=== PATIENT | female | born 1995 | race Caucasian/White ===

== ENCOUNTER → 2017-04-22 | Outpatient (CLI) | payer OTHER ==
[~2017-04-22] MED LIST: MISC-696
== END | disposition home or self-care (01) ==
LOC: C.LABSPEC 13:29
PROVIDERS: ATTEND Obstetrics & Gynecology
DX: Z34.00 Encounter for supervision of normal first pregnancy, unspecified trimester (principal)

== ENCOUNTER 2017-05-20 14:46 | Outpatient (CLI) | payer OTHER ==
[~2017-05-20] VITALS: Ht 167.6 cm; Wt 100.9 kg
--- NOTE | 2017-05-20 16:28 | DIAGNOSTIC IMAGING REPORT ---
LIMITED (US) CLINICAL HISTORY: variable heart rate on nst COMPARISON STUDY: None. FINDINGS: The fetus demonstrates a cephalic presentation. heart rate is 143 bpm. Amniotic fluid index is 14.5 cm. Femur length is 7.2 cm consistent with a 36 week and 6 day gestation. Biparietal diameter is 9.7 cm consistent with a 39 week and 4 day gestation. A survey was not performed for this examination. Anterior and lateral placenta. No evidence for subchorionic hematoma. IMPRESSION: 1. heart rate is 143 beats per minutes. The fetus is in a cephalic presentation. 2. No evidence for subchorionic hematoma. 3. Amniotic fluid index is 14.5 cm. Electronically signed by: Dustin Rinaldi M.D. 05/20/2017 4:27 PM Dictated Date/Time: 05/20/2017 4:24 PM
[2017-05-20 16:42] VITALS: Ht 167.6 cm; Wt 100.9 kg
== END 2017-05-20 17:04 | disposition home or self-care (01) ==
LOC: C.OPB 14:46 → C.LD 14:46 → C.OPB 17:04
PROVIDERS: ATTEND Obstetrics & Gynecology
DX: O26.893 Other specified pregnancy related conditions, third trimester (principal); Z3A.40 40 weeks gestation of pregnancy

== ENCOUNTER 2017-05-22 07:33 | Inpatient (IN) | payer OTHER ==
[~2017-05-22] VITALS: Ht 167.6 cm; Wt 100.9 kg
[2017-05-22 07:35] VITALS: BMI 35.9
[2017-05-22] MEDS ORDERED: LACTATED RINGER'S 1000ML 1,000 ML IV PRN (08:18)
[2017-05-22] MEDS ORDERED: LACTATED RINGER'S 1000ML 1,000 ML IV SCH (08:18)
[2017-05-22] MEDS ORDERED: PENICILLIN G POTASSIUM IV 6 MU in DEXTROSE 5% 250ML 250 ML IV ONE (09:00)
[2017-05-22 09:25] LABS: HEMATOCRIT 38.2 % (37-47); MEAN CELL VOLUME 93.2 fL (80-100); MEAN CORPUSCULAR HEMOGLOBIN 30.2 pg (25-34); MEAN CORPUSCULAR HGB CONC 32.5 g/dl (32-36); MEAN PLATELET VOLUME 12.2 fL (7.4-10.4); PLATELET COUNT 118 K/uL (130-400); WHITE BLOOD COUNT 12.29 K/uL (4.8-10.8)
[2017-05-22 09:26] LABS: PLT ESTIMATE NORMAL
[2017-05-22] MEDS ORDERED: EpHEDrine SULFATE INJ 50 MG/ML AMP ONE (09:26)
[2017-05-22] MEDS ORDERED: BUPIVACAINE 0.25% 30 ML VIAL ONE (09:26)
[2017-05-22] MEDS ORDERED: FENTANYL 2MCG/ML ROPIV 1.25MG/ML 100ML BAG EPI ONE (09:27)
[2017-05-22] MEDS ORDERED: FENTANYL CITRATE INJ 50 MCG/1 ML 2 ML VIAL ONE (09:27)
[2017-05-22] MEDS ORDERED: DiphenhydrAMINE HCL 50 MG/ML VIAL IV PRN (11:30)
[2017-05-22] MEDS ORDERED: LACTATED RINGER'S 1000ML 500 ML IV PRN (11:30)
[2017-05-22] MEDS ORDERED: NALOXONE HCL INJ 1 MG in SODIUM CHLORIDE 0.9% 1000ML 1,000 ML IV PRN (11:30)
[2017-05-22] MEDS ORDERED: ONDANSETRON INJ 2 MG/ML 2 ML VIAL IV PRN (11:30)
[2017-05-22] MEDS ORDERED: EpHEDrine SULFATE INJ 50 MG/ML AMP IV PRN (11:30)
[2017-05-22] MEDS ORDERED: FENTANYL 2MCG/ML ROPIV 1.25MG/ML 100ML BAG EPI PRN (11:30)
[2017-05-22] MEDS ORDERED: NALOXONE HCL INJ 0.4 MG/1 ML VIAL/CARP IV PRN (11:30)
[2017-05-22] MEDS ORDERED: NALBUPHINE HCL INJ 10 MG/ML AMP IV PRN (11:30)
[2017-05-22] MEDS ORDERED: PENICILLIN G POTASSIUM IV 3 MU in DEXTROSE 5% 100ML 100 ML IV PRN (12:00)
[2017-05-22] MEDS ORDERED: OXYTOCIN 30 UNITS/500ML NSS IV ONE (13:37)
[2017-05-22] MEDS ORDERED: OXYTOCIN 30 UNITS/500ML NSS IV PRN (15:00)
[2017-05-22] MEDS ORDERED: ACETAMINOPHEN 325 MG TAB PO PRN (15:00)
[2017-05-22] MEDS ORDERED: SUPERCREAM 0.870 % 15GM JAR EXT PRN (15:00)
[2017-05-22] MEDS ORDERED: BENZOCAINE 20% AER SPR 82.5 GM CAN EXT PRN (15:00)
[2017-05-22] MEDS ORDERED: ACETAMINOPHEN/CODEINE 300/30MG TAB PO PRN ×2 (15:00)
[2017-05-22] MEDS ORDERED: LANOLIN OINT EXT PRN ×2 (15:00)
[2017-05-22 15:46] VITALS: Ht 167.6 cm; Wt 100.9 kg
[2017-05-22] MEDS: IBUPROFEN 600 MG TAB PO PRN (16:23)
--- NOTE | 2017-05-22 17:02 | Anesthesia Procedure Note ---
Anesthesia Epidural Removal Nt Date & Time May 22, 2017 at 17:01 Vital Signs Pain Intensity: 2.0 Notes Mental Status: alert / awake / arousable, participated in evaluation Nausea / Vomiting: adequately controlled Pain: adequately controlled Airway Patency, RR, SpO2: stable & adequate BP & HR: stable & adequate Hydration State: stable & adequate Neuraxial Anesthesia: was administered, sensory block is resolved Anesthetic Complications: no major complications apparent, pt satisfied with anesthetic care Epidural: removed without complications, with tip intact Notes: catheter removed easily with tip intact. Site clean, dry and intact with bandaid applied.
[2017-05-22] MEDS: DOCUSATE SODIUM 100 MG CAP PO SCH (20:41)
[2017-05-22 23:45] VITALS: BP 117/76; PULSE 88; TEMP 36.7
[2017-05-23] MEDS: IBUPROFEN 600 MG TAB PO PRN ×3 (02:42→19:05)
[2017-05-23 04:35] VITALS: BP 114/73; PULSE 93; TEMP 36.8
--- NOTE | 2017-05-23 06:11 | Discharge Instructions ---
Discharge Instructions Date of Service May 23, 2017. Admission Reason for Admission: Check Labor Discharge Discharge Diagnosis / Problem: after delivery Discharge Goals Goal(s): Routine recovery after delivery Medications Continue Dispensed Medications: supercream, dermaplast, lansinoh Activity Recommendations Activity Limitations: per Instructions/Follow-up section . Instructions / Follow-Up Instructions / Follow-Up ACTIVITY RECOMMENDATIONS: * Gradual return to full activity over the next 2-3 weeks. * No lifting - nothing heavier than baby over the next 2-3 weeks. * Do not engage in vigorous exercise, sexual activity or sports until cleared by your physician. * Do not drive or operate any motorized equipment until cleared by your physician. * You may shower/bathe daily. MEDICATIONS: For discomfort or pain, you may use Acetaminophen (Tylenol), Ibuprofen (Advil), or Naproxen (Aleve) following the package directions. For constipation you may use Colace following the package directions. BREAST CARE: If you are not breast feeding: * Wear a supportive bra 24 hours a day for one to two weeks. * Avoid stimulating your breasts and nipples as much as possible during the first few weeks after delivery. * When taking a shower, have the warm water hit your back, not breasts. * When your breasts feel full, apply ice packs. Usually three to four times a day helps ease the discomfort. * Take a mild pain medication (Tylenol / Motrin) when you are uncomfortable. If breast feeding: * Use breast milk to lubricate nipples. Lansinoh cream may be used for sore nipples. You do not need to remove cream prior to breast feeding. If using a different brand of cream, check the label for directions regarding removal of cream prior to nursing. * Wear a supportive bra. * If having problems with breasts or breast feeding, call a datastage consultant or your health care provider. EPISIOTOMY CARE: After delivery, if you have an episiotomy (stitches), the following steps will ease discomfort and aid healing. * For the first 24 hours after delivery, place ice packs next to your episiotomy to help reduce swelling. * After the first 24 hour-period, sitz baths, either portable or in the tub, are suggested. A shower with a shower arm sprayed over the episiotomy may be comforting. * Kiersten care should be done after each voiding and bowel movement. Squirt warm water from a plastic bottle over the perineum (region of the body between the anus and urinary opening) and pat dry. * Use Dermoplast to ease discomfort. Shake container. [place] directly over the episiotomy. Place a Tucks on a clean sanitary pad next to your episiotomy. SPECIAL CARE INSTRUCTIONS: When you are discharged from the hospital, it is important for you to follow the instructions listed below: * During the first week at home, you should be able to care for yourself and your baby. In addition, the usual light household activities are encouraged. * Limit your activities to the way you feel. Do not try to clean the house or move furniture. Be sensible. * If you actively engage in sports and have done so up until the time of your delivery, you may resume these activities as soon as you feel able. This may take up to one month or even longer. Use good judgment. * Continue to take your vitamins for at least six weeks after the of your baby. * Your diet need not be limited unless you were on a special diet before your delivery. Breast-feeding mothers need around 2500 calories per day and at least 64-80 ounces of fluid per day (8 to 10 glasses). * You should eat foods from the four major food groups. Crash diets or fad diets are to be avoided. Eating lean meats, fresh fruits and vegetables, low-fat dairy products, high fiber foods and a regular exercise program, will help you get back to your pre- weight without putting your health at risk. * Constipation is sometimes a problem after delivery. Take a mild laxative as needed. If breast feeding, Milk of Magnesia is acceptable to use. You may use a suppository or Fleets enema if no episiotomy. * A daily shower or tub bath is suggested. Be sure to thoroughly and gently dry the perineum. * A bloody vaginal discharge will usually continue until around four weeks post . A small amount of bleeding may continue for as long as six weeks. Vaginal discharge changes from the bright red bleeding after delivery to pink then brownish and finally yellowish-pink before becoming white and disappearing. * Bleeding may increase with activity. Your first period may come in 4-8 weeks. If you are breast feeding, your period may be delayed even longer. * [place] (sex) can begin whenever both you and your partner feel comfortable and do not have any form of genital infection. It is recommended that you wait at least six weeks for internal and external healing to occur. If you have questions, please talk to your health care practitioner. A condom should be used to prevent infection and . * Foreplay, gentle intercourse and lubrication is very important the first several times to prevent pain. A water-based lubricant such as K-Y jelly or Astroglide may be used. * If you have RH negative blood and your baby is RH positive, you will receive RHOGAM by injection prior to discharge. The nurse will give you a card to keep with you that has the date and place that you received RHOGAM after delivery. * During your care, you had a Rubella screen done to check for the presence of rubella antibodies in your blood. If your test was negative, you will receive a Rubella vaccine prior to discharge. This vaccine may cause a fever, soreness at the injection site and flu-like symptoms. If these symptoms persist, notify your health care practitioner. is not advised for one month after a Rubella vaccine. * Verbalizes understanding of car seat law as reviewed with patient nursing. * Car Seat hand-out given and reviewed with patient by nursing. * Shaken baby information reviewed with patient by nursing. Call you doctor if: * Heavy bleeding (saturating several pads an hour) or passing clots the size of your fist. * A fever >101 degrees F (38.3 degrees C) on two occasions four hours apart and /or chills. * Unusual pain in the pelvic or vaginal areas. * "Baby Blues" lasting longer than two weeks. If you have any questions or concerns, call your health care practitioner at . FOLLOW UP VISIT: * Please call the office at to schedule a 6 week examination. It is important you keep this appointment. It is important for you to make arrangements for either yearly or twice yearly check-ups thereafter. Current Hospital Diet Patient's current hospital diet: Regular OB Diet Discharge Diet Recommended Diet: Regular Diet Pending Studies Studies pending at discharge: no Medical Emergencies . Who to Call and When: Medical Emergencies: If at any time you feel your situation is an emergency, please call 911 immediately. . Non-Emergent Contact Non-Emergency issues call your: Special Warfare Operator . . "Provider Documentation" section prepared by Sita Riddle. . VTE Core Measure Inpt VTE Proph given/why not?: Treatment not indicated
--- NOTE | 2017-05-23 06:14 | OB/GYN Progress Note ---
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 Subjective conversation w/ patient, physical exam, chart review, lab review Ambulation: ambulating normally Voiding: no voiding problems Diet Tolerance: Regular Diet Lochia: Small Feeding Type: Breast Feeding Pain: in no sig pain Review of Systems Constitutional: No fever Respiratory: No shortness of breath Cardiac: No chest pain Abdomen: No nausea, No vomiting Female : No dysuria Objective Vital Signs Date Time Temp Pulse Resp B/P (MAP) Pulse Ox O2 Delivery O2 Flow Rate FiO2 05/23/17 04:35 36.8 93 20 114/73 (87) Room Air 05/22/17 23:45 36.7 88 20 117/76 (90) Room Air 05/22/17 23:45 Room Air 05/22/17 18:00 Room Air Physical Exam General Appearance: WELL-APPEARING Respiratory/Chest: lungs clear, normal breath sounds, no respiratory distress Cardiovascular: regular rate, rhythm Abdomen: normal bowel sounds, non tender, soft Fundus: Firm, Relation to Umbilicus (2 below U) Extremities: non-tender, normal inspection, + pedal edema (1+) Laboratory Results Last 24 Hours Test 05/22/17 08:33 05/23/17 05:18 White Blood Count 12.29 K/uL Red Blood Count 4.10 M/uL Hemoglobin 12.4 g/dL Hematocrit 38.2 % Mean Corpuscular Volume 93.2 fL Mean Corpuscular Hemoglobin 30.2 pg Mean Corpuscular Hemoglobin Concent 32.5 g/dl RDW Standard Deviation 43.5 fL RDW Coefficient of Variation 12.9 % Platelet Count 118 K/uL Mean Platelet Volume 12.2 fL Platelet Estimate NORMAL Medications Current Inpatient Medications Medications (Trade) Dose Ordered Sig/Lisa Route Start Time Stop Time Status Last Admin Dose Admin Penicillin G Potassium 3 mu/ Dextrose 106 ml @ 100 mls/hr Q4H PRN IV 05/22/17 12:00 05/24/17 11:59 05/22/17 12:55 100 MLS/HR Lactated Ringer's 1,000 ml @ 125 mls/hr Q8H IV 05/22/17 08:18 05/24/17 08:17 05/22/17 12:45 125 MLS/HR Lactated Ringer's 1,000 ml @ 999 mls/hr Q1H1M PRN IV 05/22/17 08:18 06/21/17 08:17 Fentanyl/ Ropivacaine (Fentanyl 2MCG/ Ml/Ropivacaine 1.25MG/ML) 100 ml PRN PRN EPI 05/22/17 11:30 05/23/17 11:29 Naloxone HCl (Narcan Inj) 0.1 mg UD PRN IV 05/22/17 11:30 05/23/17 11:29 Lactated Ringer's 500 ml @ 999 mls/hr Q31M PRN IV 05/22/17 11:30 05/23/17 11:29 Ephedrine Sulfate (EpHEDrine SULFATE INJ) 10 mg Q5M PRN IV 05/22/17 11:30 05/23/17 11:29 Diphenhydramine HCl (Benadryl Inj) 25 mg Q6H PRN IV 05/22/17 11:30 05/23/17 11:29 Nalbuphine HCl (Nubain Inj) 5 mg Q10M PRN IV 05/22/17 11:30 05/23/17 11:29 Naloxone HCl 1 mg/ Sodium Chloride 1,002.5 ml @ 50 mls/hr Q20H3M PRN IV 05/22/17 11:30 05/23/17 11:29 Ondansetron HCl (Zofran Inj) 4 mg Q6H PRN IV 05/22/17 11:30 05/23/17 11:29 Oxytocin (Pitocin IV) 30 units UD PRN IV 05/22/17 15:00 06/21/17 14:59 Benzocaine (Dermoplast Aero Spr) 1 appln PRN PRN EXT 05/22/17 15:00 06/21/17 14:59 05/22/17 16:22 1 APPLN Cocaine HCl (Supercream 0.870% Cr) BID PRN EXT 05/22/17 15:00 06/05/17 14:59 Lanolin (Lanolin Oint) PRN PRN EXT 05/22/17 15:00 06/21/17 14:59 Prenat Multivit/ Manager Site/Iron/Folic Ac ( Vitamin Tab) 1 tab DAILY PO 05/23/17 08:00 06/22/17 07:59 Ibuprofen (Motrin Tab) 600 mg Q4H PRN PO 05/22/17 15:00 06/21/17 14:59 05/23/17 02:42 600 MG Acetaminophen (Tylenol Tab) 650 mg Q6H PRN PO 05/22/17 15:00 06/21/17 14:59 Acetaminophen/ Codeine Phosphate (Tylenol w/ Codeine #3 Tab) 1 tab Q4H PRN PO 05/22/17 15:00 06/21/17 14:59 Acetaminophen/ Codeine Phosphate (Tylenol w/ Codeine #3 Tab) 2 tab Q4H PRN PO 05/22/17 15:00 06/21/17 14:59 Bisacodyl (Dulcolax Tab) 5 mg 20 PO 05/23/17 20:00 05/23/17 20:01 Docusate Sodium (coLACE CAP) 100 mg BID PO 05/22/17 20:00 06/21/17 19:59 05/22/17 20:41 100 MG Ferrous Sulfate (Feosol Tab) 325 mg DAILY PO 05/23/17 08:00 06/22/17 07:59 Assessment and Plan Day Number: 1 Continue Routine Care: Resident Physician Supervision Note: I was present with Dr. Riddle during the history and exam. I discussed the case with the resident and agree with the findings and plan as documented in the note. Any exceptions or clarifications are listed here: [None] Documented By: Valarie Ace A/P: This is a 21 y/o female, , s/p normal vaginal delivery. She is ambulating and clinically stable. Plan: - Vitals signs are reviewed and WNL (Tmax 36.8) - Last Hgb is 12.4 (05/22) - Blood type O+, GBS neg, Rubella Immune - Routine care - Encourage ambulation, monitor and control pain with medication as needed, continue with regular diet as tolerated and monitor lochia - Stool softeners and sitz bath recommended - Encourage breast feeding and educate about breast feeding Resident Involvement: Resident Care Provided Care Provided: OB Delivery
[2017-05-23 07:12] VITALS: BP 110/70; PULSE 82; TEMP 36.6; O2SAT 97
[2017-05-23 07:42] VITALS: BP 127/78; PULSE 99; TEMP 36.7
[2017-05-23 07:57] LABS: HEMATOCRIT 22.6 % (37-47)
[2017-05-23] MEDS: DOCUSATE SODIUM 100 MG CAP PO SCH ×2 (08:04→20:05)
[2017-05-23] MEDS: PRENATAL VITAMIN TAB PO SCH (08:05)
[2017-05-23] MEDS: FERROUS SULFATE 325 MG TAB PO SCH (08:05)
--- NOTE | 2017-05-23 08:07 | DELIVERY SUMMARY ---
DATE OF OPERATION: 05/22/2017 DELIVERY NOTE: The patient is a 21-year-old G1, P0 white female, EDC of 05/20/2017 who presented in active labor. Upon arrival, she had had more than the usual bloody show and indeed had about 300 mL of blood on the balbina. She also passed 2 clots. She was examined and found to be 3 to 4-cm dilated, contractions were every 2-3 minutes. She received epidural analgesia, which was effective. At this point, she was 6 cm, 100% effaced with bulging membranes. This was ruptured for more clot and bloody fluid. Her heart tones remained category I throughout the labor process. She progressed quickly to full dilation and pushed effectively over intact perineum for delivery of a viable male . Mouth and nasopharynx were suctioned on the perineum. There was port wine colored fluid coming out after the head was delivered. The rest of the infant delivered easily. He was placed on the mother's abdomen for further attention and stimulation. There was vigorous crying and was moving all four limbs. The cord was clamped and cut and cord blood was obtained. The placenta was then expressed intact with a 3-vessel cord. There was minimal clot noted to be on the edge of the placental cake but nothing obvious as far as an abruption. A second-degree perineal laceration was repaired with 3-0 chromic in the usual fashion. There was a steady trickle of bleeding after delivery despite the Pitocin running at 999 mL per hour. Several smaller clots were then expressed from the cervix and bleeding was then satisfactory. Estimated blood loss was 800 mL including the peripartum bleeding. Mother and infant are doing well after delivery. I attest to the content of the Intraoperative Record and any orders documented therein. Any exception s are noted below.
[2017-05-23 11:17] VITALS: BP 115/75; PULSE 86; TEMP 36.6; O2SAT 98
[2017-05-23 15:15] VITALS: BP 112/73; PULSE 83; TEMP 36.7
[2017-05-23] MEDS ORDERED: MISC-696 ×2 (16:05)
[2017-05-23] MEDS ORDERED: BISACODYL 5 MG TABEC PO SCH (20:00)
[2017-05-24] VITALS: BP 109/74; PULSE 84; TEMP 36.7
--- NOTE | 2017-05-24 06:31 | OB/GYN Progress Note ---
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 Subjective conversation w/ patient, physical exam, chart review, lab review Ambulation: ambulating normally Passing Gas: Yes Diet Tolerance: Regular Diet Lochia: Small Feeding Type: Breast Feeding Pain: mild pain Review of Systems Constitutional: No fever Respiratory: No shortness of breath Cardiac: No chest pain Abdomen: No nausea, No vomiting Female : No dysuria Objective Vital Signs Date Time Temp Pulse Resp B/P (MAP) Pulse Ox O2 Delivery O2 Flow Rate FiO2 05/24/17 00:00 Room Air 05/24/17 00:00 36.7 84 18 109/74 (86) Room Air 05/23/17 15:15 Room Air 05/23/17 15:15 36.7 83 18 112/73 (86) Room Air 05/23/17 11:17 36.6 86 20 115/75 (88) 98 Room Air 05/23/17 07:42 36.7 99 18 127/78 (94) Room Air 05/23/17 07:42 Room Air 05/23/17 07:12 36.6 82 16 110/70 (83) 97 Room Air Physical Exam General Appearance: WELL-APPEARING Respiratory/Chest: lungs clear, normal breath sounds, no respiratory distress Cardiovascular: regular rate, rhythm Abdomen: normal bowel sounds, non tender, soft Fundus: Firm, Relation to Umbilicus (3 below U) Extremities: non-tender, + pedal edema (1+) Laboratory Results Last Resulted 05/22/17 08:33 05/23/17 05:18 Medications Current Inpatient Medications Medications (Trade) Dose Ordered Sig/[facility] Route Start Time Stop Time Status Last Admin Dose Admin Penicillin G Potassium 3 mu/ Dextrose 106 ml @ 100 mls/hr Q4H PRN IV 05/22/17 12:00 05/24/17 11:59 05/22/17 12:55 100 MLS/HR Lactated Ringer's 1,000 ml @ 125 mls/hr Q8H IV 05/22/17 08:18 05/24/17 08:17 05/22/17 12:45 125 MLS/HR Lactated Ringer's 1,000 ml @ 999 mls/hr Q1H1M PRN IV 05/22/17 08:18 06/21/17 08:17 Oxytocin (Pitocin IV) 30 units UD PRN IV 05/22/17 15:00 06/21/17 14:59 Benzocaine (Dermoplast Aero Spr) 1 appln PRN PRN EXT 05/22/17 15:00 06/21/17 14:59 05/22/17 16:22 1 APPLN Cocaine HCl (Supercream 0.870% Cr) BID PRN EXT 05/22/17 15:00 06/05/17 14:59 Lanolin (Lanolin Oint) PRN PRN EXT 05/22/17 15:00 06/21/17 14:59 Prenat Multivit/ [place]/Iron/Folic Ac ( Vitamin Tab) 1 tab DAILY PO 05/23/17 08:00 06/22/17 07:59 05/23/17 08:05 1 TAB Ibuprofen (Motrin Tab) 600 mg Q4H PRN PO 05/22/17 15:00 06/21/17 14:59 05/23/17 19:05 600 MG Acetaminophen (Tylenol Tab) 650 mg Q6H PRN PO 05/22/17 15:00 06/21/17 14:59 Acetaminophen/ Codeine Phosphate (Tylenol w/ Codeine #3 Tab) 1 tab Q4H PRN PO 05/22/17 15:00 06/21/17 14:59 Acetaminophen/ Codeine Phosphate (Tylenol w/ Codeine #3 Tab) 2 tab Q4H PRN PO 05/22/17 15:00 06/21/17 14:59 Docusate Sodium (coLACE CAP) 100 mg BID PO 05/22/17 20:00 06/21/17 19:59 05/23/17 20:05 100 MG Ferrous Sulfate (Feosol Tab) 325 mg DAILY PO 05/23/17 08:00 06/22/17 07:59 05/23/17 08:05 325 MG Assessment and Plan Day Number: 2 Continue Routine Care: Resident Physician Supervision Note: I was present with Dr. Riddle during the history and exam. I discussed the case with the resident and agree with the findings and plan as documented in the note. Any exceptions or clarifications are listed here: [None] Documented By: Jessica Javier A/P: This is a 21 y/o female, , s/p normal vaginal delivery. She is ambulating and clinically stable. Plan: - Vitals signs are reviewed and WNL (Tmax 36.8) - Last Hgb is 12.4 (05/22) - Blood type O+, GBS neg, Rubella Immune - No signs of depression. - Routine care - Discussed resting, feeding, pain control, mastitis, control, follow up in 6 weeks and reasons to call sooner, if necessary. - Continue with pain medication as needed, and continue vitamins. - Encourage breast feeding and educate about breast feeding - Patient understands and keen for home. - Plan to discharge home Resident Involvement: Resident Care Provided Care Provided: OB Delivery
[2017-05-24 07:22] VITALS: BP 120/77; PULSE 92; TEMP 36.9; O2SAT 96
[2017-05-24] MEDS: PRENATAL VITAMIN TAB PO SCH (08:12)
[2017-05-24] MEDS: FERROUS SULFATE 325 MG TAB PO SCH (08:13)
[2017-05-24] MEDS: DOCUSATE SODIUM 100 MG CAP PO SCH (08:13)
[2017-05-24 13:25] VITALS: BP_DIAS 77; PULSE 92; TEMP 36.9
== END 2017-05-24 13:00 | disposition home or self-care (01) | DRG 775 ==
LOC: C.LD 07:33 → C.OPB 07:33 → C.LD 08:20 → C.OBG 17:42
PROVIDERS: ADMIT Obstetrics & Gynecology; ATTEND Obstetrics & Gynecology
PROC: 10E0XZZ Delivery of Products of Conception, External Approach (ICD-10-PCS; principal; 2017-05-22)
PROC: 0KQM0ZZ Repair Perineum Muscle, Open Approach (ICD-10-PCS; principal; 2017-05-22)
DX: O26.893 Other specified pregnancy related conditions, third trimester (principal); O70.1 Second degree perineal laceration during delivery; Z22.330 Carrier of Group B streptococcus; Z3A.40 40 weeks gestation of pregnancy; Z37.0 Single live birth

== ENCOUNTER → 2017-12-20 | Outpatient (CLI) | payer OTHER ==
[~2017-12-20] MED LIST changes: -MISC-696; +MISC-836
== END | disposition home or self-care (01) ==
LOC: C.LAB 14:18
PROVIDERS: ATTEND Obstetrics & Gynecology
DX: Z32.00 Encounter for pregnancy test, result unknown (principal)

== ENCOUNTER → 2018-05-10 | Outpatient (CLI) | payer OTHER ==
[~2018-05-10] MED LIST changes: +PRENTAB26 PO
[2018-05-10 12:22] LABS: BASO % 0.1 %; BASO ABS # 0.01 K/uL (0-0.2); EOS % 0.2 %; EOS ABS # 0.02 K/uL (0-0.5); HEMATOCRIT 37.7 % (37-47); HEMOGLOBIN 12.8 g/dL (12.0-16.0); IG# 0.02 K/uL (0.00-0.02); LYMPH % 8.1 %; MEAN CELL VOLUME 89.3 fL (80-100); MEAN CORPUSCULAR HEMOGLOBIN 30.3 pg (25-34); MEAN PLATELET VOLUME 11.2 fL (7.4-10.4); MONO % 8.1 %; NEUT % 83.3 %; NEUT ABS # 9.25 K/uL (1.4-6.5); PLATELET COUNT 146 K/uL (130-400); RED CELL DISTRIBUTION WIDTH SD 42.1 fL (36.4-46.3)
== END | disposition home or self-care (01) ==
LOC: C.LAB1850 09:59
PROVIDERS: ATTEND Obstetrics & Gynecology
DX: Z34.91 Encounter for supervision of normal pregnancy, unspecified, first trimester (principal)

== ENCOUNTER → 2018-05-10 | Outpatient (CLI) | payer OTHER | END | disposition home or self-care (01) | LOC: C.PAPS 12:01 | PROVIDERS: ATTEND Obstetrics & Gynecology | DX: Z34.91 Encounter for supervision of normal pregnancy, unspecified, first trimester (principal) ==

== ENCOUNTER 2018-05-14 01:39 | Emergency (ER) | payer OTHER ==
[~2018-05-14] VITALS: Ht 167.6 cm; Wt 80.6 kg
[~2018-05-14 01:39] MED LIST changes: -PRENTAB26 PO
[2018-05-14 01:44] VITALS: TEMP 36.9; Ht 167.6 cm; Wt 80.6 kg
[2018-05-14] MEDS ORDERED: PRENTAB26 PO (02:15)
[2018-05-14] MEDS ORDERED: SODIUM CHLORIDE 0.9% 1000ML 1,000 ML IV ONE (02:15)
[2018-05-14 02:29] LABS: BASO % 0.3 %; BASO ABS # 0.02 K/uL (0-0.2); EOS ABS # 0.24 K/uL (0-0.5); HEMATOCRIT 37.3 % (37-47); HEMOGLOBIN 12.9 g/dL (12.0-16.0); IG# 0.01 K/uL (0.00-0.02); LYMPH % 32.1 %; LYMPH ABS # 2.53 K/uL (1.2-3.4); MEAN CELL VOLUME 89.4 fL (80-100); MEAN CORPUSCULAR HEMOGLOBIN 30.9 pg (25-34); MEAN CORPUSCULAR HGB CONC 34.6 g/dl (32-36); MONO % 7.1 %; MONO ABS # 0.56 K/uL (0.11-0.59); NEUT % 57.4 %; NEUT ABS # 4.51 K/uL (1.4-6.5); PLATELET COUNT 191 K/uL (130-400); RED CELL DISTRIBUTION WIDTH CV 12.5 % (11.5-14.5); WHITE BLOOD COUNT 7.87 K/uL (4.8-10.8)
[2018-05-14 02:50] LABS: ALBUMIN 3.7 gm/dl (3.4-5.0); CALCIUM 8.9 mg/dl (8.5-10.1); CREATININE 0.71 mg/dl (0.60-1.20); POTASSIUM 3.3 mmol/L (3.5-5.1); TOTAL PROTEIN 7.6 gm/dl (6.4-8.2)
[2018-05-14] MEDS ORDERED: ACETAMINOPHEN 500 MG TAB PO STA (04:07)
[2018-05-14 05:14] VITALS: BP 102/62; PULSE 95; O2SAT 97
--- NOTE | 2018-05-14 07:11 | DIAGNOSTIC IMAGING REPORT ---
<14 WKS SINGLE CLINICAL HISTORY: Vag bleed. [id number] TECHNIQUE: Ultrasound COMPARISON STUDY: None FINDINGS: Retroflexed uterus. Low-lying intrauterine gestational sac. A pole and yolk sac are seen. Is again are low-lying. 3.5 x 1.5 cm subchorionic bleed. Abnormal heart rate at 76 bpm. This is considered low. The maternal cervix is closed. Right ovary measures 3.6 cm at maximum with normal vascular flow. Left ovary measures 2.6 cm and contains a 1.8 cm hemorrhagic cyst. IMPRESSION: 1. Single, viable intrauterine with an estimated gestational age is 7 weeks 2 days. 2. Abnormally low heart rate at 76 bpm. 3. Gestational sac is somewhat low within the uterus. 4. Subchorionic bleed measuring 3.5 x 1.5 cm. The above report was generated using voice recognition software. It may contain grammatical, syntax or spelling errors. Electronically signed by: Inder Elena M.D. 05/14/2018 7:09 AM Dictated Date/Time: 05/14/2018 7:07 AM
--- NOTE | 2018-05-15 02:10 | EMERGENCY ROOM VISIT NOTE ---
History First contact with patient: 01:50 Chief Complaint: VAGINAL BLEEDING Stated Complaint: 7WKS , BLEEDING History of Present Illness The patient is a 22 year old female who presents to the Emergency Room with complaints of vaginal bleeding that began throughout the course of the day. The patient states that she was with her all day [facility] She started with a small amount of red blood this afternoon, but then did have a larger amount of blood that prompted her presentation to the department. She has been wearing a pad, but has not soaked through this in the past 2 hours. The patient has not had fever or chills. She does report some very mild left-sided cramping, however she did not think anything of this because she was active today. The patient is usually healthy. This is her second , and her first was unremarkable. She states that she did see [facility] last week where she had informal ultrasound showing estimated gestational age of 7 weeks. The patient has not taken any medication [id number] for her symptoms. She considers herself otherwise usually healthy. Review of Systems More than 10 systems were reviewed and otherwise negative with the exception of history of present illness. Past Medical/Surgical History Medical Problems: (1) 40 weeks gestation of (2) Normal labor (3) Variable heart rate decelerations, antepartum Family History No pertinent family history Social History Smoking Status: Never Smoker Marital Status: Housing Status: lives with family Current/Historical Medications Scheduled Multivit/Min/Iron/Fol Ac/Pren ( Vitamin), 1 TAB PO DAILY Physical Exam Vital Signs Date Time Temp Pulse Resp B/P (MAP) Pulse Ox O2 Delivery O2 Flow Rate FiO2 05/14/18 05:14 95 18 102/62 97 Room Air 05/14/18 03:14 79 18 103/63 100 Room Air 05/14/18 01:44 36.9 90 18 109/71 100 Room Air Physical Exam VITALS: Vitals are noted on the nurse's note and reviewed by myself. Vital signs stable. GENERAL: Well-developed, well-nourished, white female, who is in no acute distress and resting comfortably. Patient is cooperative with the examination. HEAD: Normocephalic atraumatic. HEART: Regular rate and rhythm without murmurs gallops or rubs. LUNGS: Clear to auscultation bilaterally without wheezes, rales or rhonchi. No retractions or accessory muscle use. ABDOMEN: Positive normal bowel sounds x 4. Soft, nontender, without masses or organomegaly. No guarding or rebound tenderness. MUSCULOSKELETAL: No muscle atrophy, erythema, or edema noted. Full range of motion in all extremities. No tenderness to palpation. Medical Decision & Procedures ER Provider Diagnostic Interpretation: <14 WKS SINGLE CLINICAL HISTORY: Vag bleed. [id number] TECHNIQUE: Ultrasound COMPARISON STUDY: None FINDINGS: Retroflexed uterus. Low-lying intrauterine gestational sac. A pole and yolk sac are seen. Is again are low-lying. 3.5 x 1.5 cm subchorionic bleed. Abnormal heart rate at 76 bpm. This is considered low. The maternal cervix is closed. Right ovary measures 3.6 cm at maximum with normal vascular flow. Left ovary measures 2.6 cm and contains a 1.8 cm hemorrhagic cyst. IMPRESSION: 1. Single, viable intrauterine with an estimated gestational age is 7 weeks 2 days. 2. Abnormally low heart rate at 76 bpm. 3. Gestational sac is somewhat low within the uterus. 4. Subchorionic bleed measuring 3.5 x 1.5 cm. Laboratory Results 05/14/18 02:15 Red Blood Count 4.17, Mean Corpuscular Volume 89.4, Mean Corpuscular Hemoglobin 30.9, Mean Corpuscular Hemoglobin Concent 34.6, Mean Platelet Volume 10.0, Neutrophils (%) (Auto) 57.4, Lymphocytes (%) (Auto) 32.1, Monocytes (%) (Auto) 7.1, Eosinophils (%) (Auto) 3.0, Basophils (%) (Auto) 0.3, Neutrophils # (Auto) 4.51, Lymphocytes # (Auto) 2.53, Monocytes # (Auto) 0.56, Eosinophils # (Auto) 0.24, Basophils # (Auto) 0.02 05/14/18 02:15 Test 05/14/18 02:15 05/14/18 04:03 White Blood Count 7.87 K/uL (4.8-10.8) Red Blood Count 4.17 M/uL (4.2-5.4) Hemoglobin 12.9 g/dL (12.0-16.0) Hematocrit 37.3 % (37-47) Mean Corpuscular Volume 89.4 fL (80-100) Mean Corpuscular Hemoglobin 30.9 pg (25-34) Mean Corpuscular Hemoglobin Concent 34.6 g/dl (32-36) Platelet Count 191 K/uL (130-400) Mean Platelet Volume 10.0 fL (7.4-10.4) Neutrophils (%) (Auto) 57.4 % Lymphocytes (%) (Auto) 32.1 % Monocytes (%) (Auto) 7.1 % Eosinophils (%) (Auto) 3.0 % Basophils (%) (Auto) 0.3 % Neutrophils # (Auto) 4.51 K/uL (1.4-6.5) Lymphocytes # (Auto) 2.53 K/uL (1.2-3.4) Monocytes # (Auto) 0.56 K/uL (0.11-0.59) Eosinophils # (Auto) 0.24 K/uL (0-0.5) Basophils # (Auto) 0.02 K/uL (0-0.2) RDW Standard Deviation 41.0 fL (36.4-46.3) RDW Coefficient of Variation 12.5 % (11.5-14.5) Immature Granulocyte % (Auto) 0.1 % Immature Granulocyte # (Auto) 0.01 K/uL (0.00-0.02) Anion Gap 7.0 mmol/L (3-11) Est Creatinine Clear Calc Drug Dose 134.1 ml/min Estimated GFR () 141.1 Estimated GFR (Non- 121.8 BUN/Creatinine Ratio 16.7 (10-20) Calcium Level 8.9 mg/dl (8.5-10.1) Total Bilirubin 0.2 mg/dl (0.2-1) Aspartate Amino Transf (AST/SGOT) 14 U/L (15-37) Alanine Aminotransferase (ALT/SGPT) 17 U/L (12-78) Alkaline Phosphatase 73 U/L (45-117) Total Protein 7.6 gm/dl (6.4-8.2) Albumin 3.7 gm/dl (3.4-5.0) Globulin 3.9 gm/dl (2.5-4.0) Albumin/Globulin Ratio 0.9 (0.9-2) Human Chorionic Gonadotropin, Quant 7740 mIU/mL Urine Color YELLOW Urine Appearance CLEAR (CLEAR) Urine pH 6.5 (4.5-7.5) Urine Specific [place] 1.013 (1.000-1.030) Urine Protein NEG (NEG) Urine Glucose (UA) NEG (NEG) Urine Ketones NEG (NEG) Urine Occult Blood 3+ (NEG) Urine Nitrite NEG (NEG) Urine Bilirubin NEG (NEG) Urine Urobilinogen NEG (NEG) Urine Leukocyte Esterase NEG (NEG) Urine WBC (Auto) 0 /hpf (0-5) Urine RBC (Auto) >30 /hpf (0-4) Urine Hyaline Casts (Auto) 0 /lpf (0-5) Urine Epithelial Cells (Auto) 10-20 /lpf (0-5) Urine Bacteria (Auto) NEG (NEG) Medications Administered Medications (Trade) Dose Ordered Sig/Lisa Route Start Time Stop Time Status Last Admin Dose Admin Sodium Chloride 1,000 ml @ 999 mls/hr Q1H1M ONCE IV 05/14/18 02:15 05/14/18 03:15 DC 05/14/18 02:17 999 MLS/HR Acetaminophen (Tylenol Tab) 1,000 mg NOW STAT PO 05/14/18 04:07 05/14/18 04:08 DC 05/14/18 04:12 1,000 MG ED Course Physical exam and history were performed. Nursing notes, EMR, and Medication List were personally reviewed. Patient appears to have vaginal bleeding in . The patient does not have significant reproducible tenderness or gross hemorrhage on examining. IV access was established and labs were obtained. She was gently hydrated with normal saline. She was sent right to ultrasound for further evaluation. The patient blood work is as above and was reviewed. She does not have a significantly elevated white blood cell count, gross anemia, bandemia, or significant electrolyte imbalance. Her hCG quantitative is just over 7700, which would be lower than expected for a 7-week gestation based on her lab. Patient's ultrasound is as above and shows a viable intrauterine . The patient does have a subchorionic hemorrhage, as well as a decreased heart rate. Her cervix is closed. She is blood type O+ with negative antibodies. I discussed the case with the on-call [facility], Dr. Mathew. Recommendation was for follow-up in the clinic later this week. Dr. Mathew's group will call the patient Tuesday morning to arrange appropriate follow-up. The patient otherwise is felt to be well for discharge home. I will place the patient on pelvic rest , and have her avoid unnecessary physical activities. The patient and I had a lengthy discussion regarding importance of returning to the ER if she has any worsening symptoms. She understands this could evolve into a miscarriage. She was pleased with this plan and voiced understanding. She was discharged home under the care of her mother and her . The chart was completed utilizing [employer] Speech Voice Recognition Software. Grammatical errors, random word insertions, pronoun errors, and incomplete sentences are an occasional consequence of this system due to software limitations, ambient noise, and hardware issues. Any formal questions or concerns about the content, text, or information contained within the body of this dictation should be directly addressed to the provider for clarification. . Medical Decision Differential diagnosis: Etiologies such as ectopic , dysfunction uterine bleeding, bleeding dyscrasia, trauma, infection, as well as others were entertained. Impression Primary Impression: Threatened Departure Information Dispostion Home / Self-Care Condition GOOD Referrals Traci Mathew M.D.([employer]/OB) Forms HOME CARE DOCUMENTATION FORM, IMPORTANT VISIT INFORMATION Patient Instructions My [facility] Additional Instructions You were seen and evaluated today on an emergency basis only. This is not a substitute for, or an effort to provide, complete comprehensive medical care. It is not possible to recognize and treat all injuries or illnesses in a single emergency department visit. For this reason it is recommended that you followup with [facility] this week for ongoing care and evaluation. The office should be calling you by 12 noon Tuesday. If you do not hear from them please contact them directly to help schedule appointment. We spoke directly with Dr. Mathew, who would like you to follow-up in the next week. Drink plenty of fluids and remain well-hydrated. Take Tylenol 1000 mg every 6-8 hours for pain and cramping. You are welcome to return to the emergency department anytime with new, worsening, or concerning symptoms.
== END 2018-05-14 05:44 | disposition home or self-care (01) ==
LOC: C.EDB 01:41 → C.EDA 05:44
DX: O20.0 Threatened abortion (principal)

== ENCOUNTER → 2018-05-16 | Outpatient (CLI) | payer OTHER ==
[~2018-05-16] MED LIST changes: -MISC-836; +PRENTAB26 PO
== END | disposition home or self-care (01) ==
LOC: C.LAB1850 11:41
PROVIDERS: ATTEND Obstetrics & Gynecology
DX: O03.9 Complete or unspecified spontaneous abortion without complication (principal)

== ENCOUNTER → 2018-05-25 | Outpatient (CLI) | payer OTHER | END | disposition home or self-care (01) | LOC: C.LAB1850 11:47 | PROVIDERS: ATTEND Obstetrics & Gynecology | DX: O03.9 Complete or unspecified spontaneous abortion without complication (principal) ==

== ENCOUNTER 2019-09-18 15:37 | Inpatient (IN) ==
[2019-09-18] MEDS ORDERED: PENICILLIN G POTASSIUM 6 MU in DEXTROSE 5% 250 ML IV STA (15:47)
[2019-09-18] MEDS ORDERED: OXYTOCIN 30 UNITS/500 ML BAG IV PRN ×2 (15:47→17:51)
[2019-09-18 16:12] LABS: Hematocrit (blood only) 36.4 % (37-47); Hemoglobin 12.2 g/dL (12.0-16.0); Mean Corpuscular Hemoglobin 31.3 pg (25-34); Mean Corpuscular Volume 93.3 fL (80-100); Mean Platelet Volume 10.9 fL (7.4-10.4); Platelet Count 152 K/uL (130-400); RDW Coefficient of Variation 13.6 % (11.5-14.5); RDW Standard Deviation 46.3 fL (36.4-46.3); White Blood Count 9.54 K/uL (4.8-10.8)
[2019-09-18 16:18] LABS: Mean Corpuscular Hgb Conc 33.5 g/dL (32-36)
[2019-09-18] MEDS: LACTATED RINGER'S 1,000 ML IV PRN ×2 (16:58→21:58)
[2019-09-18] MEDS: PENICILLIN G POTASSIUM 3 MU in DEXTROSE 5% 100 ML IV SCH (20:14)
[2019-09-18] MEDS ORDERED: ePHEDrine sulfate 50 MG/ML AMP ONE (22:00)
[2019-09-18] MEDS ORDERED: BUPIVACAINE 0.25% 30 ML VIAL ONE (22:00)
[2019-09-18] MEDS ORDERED: fentaNYL 2MCG/ML ROPIV 1.25MG/ML 100 ML BAG EPI ONE (22:01)
[2019-09-18] MEDS: fentaNYL citrate 100 MCG/2 ML VIAL ONE ×2 (22:40→22:48)
[2019-09-18] MEDS ORDERED: PROMETHAZINE HCL 6.25 MG in SODIUM CHLORIDE 0.9% 50 ML IV PRN (22:43)
[2019-09-18] MEDS ORDERED: NALOXONE HCL 0.4 MG/1 ML VIAL/CARP IV PRN (22:43)
[2019-09-18] MEDS ORDERED: NALOXONE HCL 1 MG in SODIUM CHLORIDE 0.9% 1000ML 1,000 ML IV PRN (22:43)
[2019-09-18] MEDS ORDERED: ePHEDrine sulfate 50 MG/ML AMP IV PRN (22:43)
[2019-09-18] MEDS ORDERED: fentaNYL 2MCG/ML ROPIV 1.25MG/ML 100 ML BAG EPI PRN (22:43)
[2019-09-18] MEDS ORDERED: NALBUPHINE HCL INJ 10 MG/ML AMP IV PRN (22:43)
[2019-09-18] MEDS ORDERED: ONDANSETRON INJ 2 MG/ML 2 ML VIAL IV PRN (22:43)
[2019-09-18] MEDS ORDERED: DiphenhydrAMINE HCL 50 MG/ML VIAL IV PRN (22:43)
--- NOTE | 2019-09-18 22:43 | Anesthesiology Consultation ---
Date of Service September 18, 2019 Assessment & Plan Chart Review Chart Review: Patient NOT seen in Pre Admission Testing and Acceptable Risk for Labor Epidural Consults Requested none ASA ASA2 Proposed Anesthesia Anesthesia Type: Labor Epidural Risk / Benefits Reviewed With: PT / POA / Parent / Guardian, Accepts Plan and Informed Consent Obtained History Height/Weight Height: 5 ft 6 in Weight: 96.162 kg Allergies Allergy/AdvReac Type Severity Reaction Status Date / Time No Known Allergies Allergy Verified 08/01/19 21:48 Medications Home Medications Medication Instructions Recorded Confirmed Last Taken No Known Home Medications 09/18/19 09/18/19 Unknown Active Medications Generic Name Dose Route Start Last Admin Trade Name Freq PRN Reason Stop Dose Admin Lactated Ringer's 1,000 mls @ 125 mls/hr 09/18/19 15:47 09/18/19 22:00 Lr IV 09/20/19 15:46 999 mls/hr .Q8H PRN Infusion L&D Protocol Protocol Penicillin G Potassium 3 mu/ 106 mls @ 100 mls/hr 09/18/19 20:00 09/18/19 20:14 Dextrose IV 09/28/19 19:59 100 mls/hr Q4H HENOK Administration Protocol Oxytocin 30 units in 500 mls @ 10 mls/hr 09/18/19 17:51 09/18/19 22:00 Pitocin IV 09/20/19 17:50 0.6 units/hr .Q24H PRN 10 mls/hr Labor Induction/Augmentation Titration Protocol 0.6 UNITS/HR NPO Date Last Intake of Fluids: 09/18/19 Time Last Intake of Fluids: 18:00 Date Last Intake of Solids: 09/18/19 Time Last Intake of Solids: 08:00 Past Medical History Medical History 40 weeks gestation of Anxiety Asthma Uses Albuterol Inhaler PRN Depression Previously took Lexapro. Stopped with positive test. Has been doing well without medications during the . Miscarriage within last 12 months No pertinent family history Normal labor Threatened (Acute) Variable heart rate decelerations, antepartum Exercise / Class Metabolic Activity II 4-5 Yardwork/Stairs/Walk up hill Past Family History Family History Other No known health problems No significant family history Past Surgical History Surgical History H/O endoscopy No pertinent past surgical history [place] teeth extracted Past Anesthesia History No Hx of Anesthesia Complications and No Family Hx of Anesthesia Complications History of PONV No Hx of PONV and No Hx of Motion Sickness Social History Smoking Status: Never smoker Hx Alcohol Use: No Hx Substance Use: No substance use type: does not use Physical Exam Vital Signs Last Vital Signs Temp 36.7 C 09/18/19 20:55 Pulse 98 H 09/18/19 22:36 Resp 18 09/18/19 20:55 BP 107/61 09/18/19 22:32 Pulse Ox 96 09/18/19 22:36 ENMT Mouth: no dentition abnormality Thyromental Distance: > or= 3.5 Finger Breadths Mallampati Class: II Neck normal visual inspection Respiratory normal respiratory effort Auscultation: lungs clear to auscultation bilaterally Cardiovascular Rate/Rhythm: regular rate and regular rhythm Psychiatric Orientation: alert Testing Laboratory Results 09/18/19 16:01
[2019-09-19] MEDS: PENICILLIN G POTASSIUM 3 MU in DEXTROSE 5% 100 ML IV SCH (00:25)
[2019-09-19] MEDS ORDERED: bisacodyL 10 MG SUPP PR PRN (02:47)
[2019-09-19] MEDS ORDERED: SUPERCREAM 0.870% 15 GM JAR EXT PRN (02:47)
[2019-09-19] MEDS ORDERED: ACETAMINOPHEN W/CODEINE #3 1 TAB PO PRN (02:47)
[2019-09-19] MEDS ORDERED: DIPHTHERIA/TETANUS/PERTUSSIS 0.5 ML SYR/VIAL IM ONE (02:47)
[2019-09-19] MEDS ORDERED: BENZOCAINE 20% AER SPR 82.5 GM CAN EXT PRN (02:47)
[2019-09-19] MEDS ORDERED: OXYCODONE/ACETAMINOPHEN 5mg/325mg TAB PO PRN (02:47)
[2019-09-19] MEDS ORDERED: ACETAMINOPHEN 325 MG TAB PO PRN (02:47)
[2019-09-19] MEDS ORDERED: OXYTOCIN 30 UNITS/500 ML BAG IV PRN (02:47)
[2019-09-19] MEDS ORDERED: HYDROCORTISONE ACETATE 25 MG SUPP PR PRN (02:47)
--- NOTE | 2019-09-19 03:04 | Delivery Summary ---
DATE OF OPERATION: 09/19/2019 DELIVERY NOTE The patient is a 4, para 2, blood type is O positive, vaginal beta strep positive. She was admitted at 37 weeks 4 days with sergio rupture of membranes. She was given IV penicillin, started on Pitocin. When she got to be about 4 cm, she requested and received epidural anesthesia for pain control. We then continued to Pitocin her. She went to full dilatation, pushed out a live via direct occiput anterior position over an intact perineum. Infant was suctioned through the mouth and the nose. Shoulders were delivered without difficulty. Cord was clamped, cut by the patient's mother. Cord blood was taken. With IV Pitocin running, the placenta was removed intact. Inspection of the perineum revealed a first-degree perineal laceration. This was repaired anatomically. The vaginal mucosa was approximated out and to beyond the hymenal ring with a running 2-0 Vicryl. Deep suture was used to approximate the bulbocavernosus muscle. A separate deep suture was used to approximate the perineal body. A running subcuticular suture was used to approximate the perineal skin edges. Following this, hemostasis was good. Vag exam including rectovaginal examination revealed no hematoma formation or sponges in the vagina. Estimated blood loss was 200 mL. Apgars were deferred to the nurses. COLLETTE
[2019-09-19] MEDS: IBUPROFEN 600 MG TAB PO PRN ×4 (05:28→21:02)
--- NOTE | 2019-09-19 07:28 | Anesthesia Procedure Note ---
Date of Service September 19, 2019 Anesthesia Post Epidural Note Vital Signs Vital Signs: Temp Pulse Resp BP Pulse Ox 37.1 C 100 H 18 103/59 L 99 09/19/19 05:15 09/19/19 05:15 09/19/19 05:15 09/19/19 05:15 09/19/19 05:15 Notes Mental Status: alert / awake / arousable Nausea / Vomiting: adequately controlled Pain: adequately controlled Airway Patency, RR, SpO2: stable & adequate BP & HR: stable & adequate Hydration State: stable & adequate Neuraxial Anesthesia: was administered and sensory block is resolving Anesthetic Complications: no major complications apparent Epidural: Removed without complications and With tip intact
[2019-09-19] MEDS: PRENATAL VITAMIN 1 TAB PO SCH (07:48)
[2019-09-19] MEDS: FERROUS SULFATE 325 MG TAB PO SCH (07:48)
[2019-09-19] MEDS: DOCUSATE SODIUM 100 MG CAP PO SCH ×2 (07:48→20:15)
[2019-09-20] MEDS: IBUPROFEN 600 MG TAB PO PRN (02:11)
[2019-09-20 07:25] LABS: Hematocrit (blood only) 36.3 % (37-47); Mean Corpuscular Hemoglobin 30.8 pg (25-34); Mean Corpuscular Hgb Conc 33.1 g/dL (32-36); Mean Corpuscular Volume 93.1 fL (80-100); Mean Platelet Volume 10.6 fL (7.4-10.4); Platelet Count 123 K/uL (130-400); RDW Coefficient of Variation 13.7 % (11.5-14.5); RDW Standard Deviation 46.3 fL (36.4-46.3); White Blood Count 10.33 K/uL (4.8-10.8)
[2019-09-20] MEDS: PRENATAL VITAMIN 1 TAB PO SCH (08:02)
[2019-09-20] MEDS: FERROUS SULFATE 325 MG TAB PO SCH (08:02)
[2019-09-20] MEDS: DOCUSATE SODIUM 100 MG CAP PO SCH (08:02)
--- NOTE | 2019-09-20 09:18 | Obstetrical Progress Note ---
Date of Service September 20, 2019 Physical Exam Physical Exam: abdomen soft and non tender no calf tenderness ambulating well vaginal bleeding scant to moderate hgb 12.0 Results & Data Vital Signs (Past 12 Hours) Vital Signs Temp Pulse Resp BP BP Pulse Ox 09/20/19 07:56 36.6 C 80 18 106/72 94 09/20/19 03:05 36.7 C 90 16 100/67 96 09/19/19 23:00 36.8 C 84 16 120/80 96
[2019-09-20] MEDS ORDERED: bisacodyL 5 MG TABEC PO SCH (20:00)
== END 2019-09-20 13:05 | disposition home or self-care (01) | DRG 807 ==
LOC: OPB 15:37 → 4S1 15:46 → 4S2 09-19 05:26

== ENCOUNTER 2022-01-24 16:46 | Observation (INO) ==
[2022-01-24] MEDS ORDERED: LACTATED RINGER'S 1,000 ML IV PRN (20:41)
[2022-01-24] MEDS ORDERED: OXYTOCIN 30 UNITS/500 ML BAG IV PRN (20:41)
[2022-01-24 21:10] LABS: Hematocrit (blood only) 34.1 % (37-47); Hemoglobin 11.8 g/dL (12.0-16.0); Mean Corpuscular Hemoglobin 31.2 pg (25-34); Mean Corpuscular Hgb Conc 34.6 g/dL (32-36); Mean Corpuscular Volume 90.2 fL (80-100); Mean Platelet Volume 11.1 fL (7.4-10.4); Platelet Count 149 K/uL (130-400); RDW Coefficient of Variation 14.5 % (11.5-14.5); RDW Standard Deviation 47.6 fL (36.4-46.3); Red Blood Count 3.78 M/uL (4.2-5.4); White Blood Count 8.24 K/uL (4.8-10.8)
[2022-01-24] MEDS ORDERED: BUTORPHANOL TARTRATE 1 MG/ML VIAL IV PRN (21:47)
[2022-01-24] MEDS ORDERED: ACETAMINOPHEN 325 MG TAB PO PRN (21:51)
--- NOTE | 2022-01-25 09:21 | History and Physical Report ---
CHIEF COMPLAINT: Intrauterine at 37 weeks 3 days; contractions. HISTORY OF PRESENT ILLNESS: The patient is a 26-year-old 5, para 2. She is in good general health. No chronic pills or medication. Her present course has been complicated by at least one admission for premature labor at about 27 weeks. She was given Celestone at that time. She had intermittent contractions at home. She was given another course of Celestone at 34 weeks. Presently, she called the answering service, said she was having contractions. She was brought into the hospital. She had contractions for several hours, then during the night, the contractions stopped. PAST OBSTETRICAL HISTORY: First delivery in 2017, a boy, 8 pounds 6 ounces, spontaneous vaginal delivery 40 weeks, 8-hour labor, pushed 5 minutes. Second delivery 2019. Ruptured membranes, a girl, 7 pounds 13 ounces, 37 weeks about a 4-5 hour labor, pushed one time. PAST MEDICAL HISTORY: She has 2 children in good health. No known drug allergies. PAST SURGICAL HISTORY: [place] teeth. MEDICAL HISTORY: No history of rheumatic fever, heart disease, heart murmur, diabetes, tuberculosis. SOCIAL HISTORY: No smoking, no excessive alcohol intake. Works at [employer]. FAMILY HISTORY: Mom is 47, in good health. Father 47, had a broken hip due to an auto accident. One brother and one-half brother in good health. REVIEW OF SYSTEMS: HEAD: No symptoms of frequent or severe headaches. EYES: No symptoms of blurred vision or double vision. EARS: No symptoms of frequent ear infection or difficulty hearing. PHYSICAL EXAMINATION: GENERAL: Well-developed, well-nourished 26-year-old white female, alert, oriented x3, cooperative, in no acute distress, appeared her stated age. EYES: Conjunctivae pink. Sclerae white, no evidence of jaundice. ENT: Ears had normal light reflex bilaterally. Nose had normal mucosa. Septum is midline. There were no polyps. Throat had no erythema or evidence of infection. Teeth are in good state of repair. HEAD: Normocephalic, normal distribution of hair. NECK: Supple. Trachea midline. Thyroid is not enlarged. There is no adenopathy appreciated. Both carotids are of good intensity. CHEST: Clear to auscultation and percussion. No wheezes, rales or rhonchi appreciated. HEART: Had regular rhythm. S1 and S2 are normal. BREASTS: Normal. ABDOMEN: Term size fetus, vertex presentation. No CVA tenderness, no calf tenderness. PELVIC: Cervix 5 cm dilated. MUSCULOSKELETAL: Revealed no calf tenderness. IMPRESSION OF THIS CASE: Intrauterine at 37 weeks 3 days, false labor. Job ID: [id number] MTDD
== END 2022-01-25 07:49 | disposition home or self-care (01) ==
LOC: OPB 16:46 → 4S1 16:47 → INTOOBSV 20:41

== ENCOUNTER 2022-01-26 22:04 | Inpatient (IN) ==
[2022-01-26] MEDS ORDERED: OXYTOCIN 30 UNITS/500 ML BAG IV PRN (22:42)
[2022-01-26] MEDS: LACTATED RINGER'S 1,000 ML IV PRN ×2 (23:01→23:55)
[2022-01-26] MEDS ORDERED: ePHEDrine sulfate 50 MG/ML AMP ONE (23:15)
[2022-01-26] MEDS ORDERED: fentaNYL 2MCG/ML ROPIVACAINE 1.25MG/ML 100 ML BAG EPI ONE (23:15)
[2022-01-26] MEDS ORDERED: SODIUM CHLORIDE 0.9% INJ 10 ML VIAL ONE (23:15)
[2022-01-26] MEDS ORDERED: fentaNYL citrate 100 MCG/2 ML VIAL ONE (23:15)
[2022-01-26] MEDS ORDERED: BUPIVACAINE 0.25% 30 ML VIAL ONE (23:15)
[2022-01-26] MEDS ORDERED: NALOXONE HCL 0.4 MG/1 ML VIAL/CARP IV PRN (23:19)
[2022-01-26] MEDS ORDERED: ONDANSETRON INJ 2 MG/ML 2 ML VIAL IV PRN (23:19)
[2022-01-26] MEDS ORDERED: NALBUPHINE HCL INJ 10 MG/ML AMP IV PRN (23:19)
[2022-01-26] MEDS ORDERED: ePHEDrine sulfate 50 MG/ML AMP IV PRN (23:19)
[2022-01-26] MEDS ORDERED: fentaNYL 2MCG/ML ROPIVACAINE 1.25MG/ML 100 ML BAG EPI PRN (23:19)
[2022-01-26] MEDS ORDERED: diphenhydrAMINE 50 MG/ML VIAL IV PRN (23:19)
[2022-01-26] MEDS ORDERED: NALOXONE HCL 1 MG in SODIUM CHLORIDE 0.9% 1000ML 1,000 ML IV PRN (23:19)
--- NOTE | 2022-01-26 23:20 | Anesthesiology Consultation ---
Date of Service January 26, 2022 Assessment & Plan (1) Encounter for pre-operative examination: Chart Review Chart Review: Patient NOT seen in Pre Admission Testing and Acceptable Risk for Labor Epidural Consults Requested none History Height/Weight Height: 5 ft 6 in Weight: 98.883 kg Allergies Allergy/AdvReac Type Severity Reaction Status Date / Time cashew nut Allergy Intermediate MOUTH BUMPS Verified 01/26/22 22:22 Medications Home Medications Medication Instructions Recorded Confirmed Last Taken albuterol sulfate 90 mcg/actuation 2 puff INHALATION Q6H PRN 04/05/20 01/26/22 1 Week Ago aerosol inhaler ~11/13/21 albuterol sulfate 2.5 mg INHALATION Q6H PRN 08/27/20 01/26/22 1 Week Ago ~11/13/21 pediatric multivitamin no.76 1 tab PO DAILY 11/20/21 01/26/22 11/20/21 (Flintstones Complete) Active Medications Generic Name Dose Route Start Last Admin Trade Name Freq PRN Reason Stop Dose Admin Lactated Ringer's 1,000 mls @ 125 mls/hr 01/26/22 22:42 01/26/22 23:01 Lr IV 01/28/22 22:41 999 mls/hr .Q8H PRN Administration L&D Protocol Protocol Past Medical History Medical History Anxiety Anxiety and depression Asthma Uses Albuterol Inhaler PRN History of mononucleosis VERBALIZED "REOCCURING MONO" Exercise / Class Metabolic Activity II 4-5 Yardwork/Stairs/Walk up hill Past Family History Family History Other No known health problems No significant family history Past Surgical History Surgical History Family history of reaction to anesthesia MOTHER-NAUSEA History of esophagogastroduodenoscopy (EGD) [place] teeth extracted Past Anesthesia History No Hx of Anesthesia Complications and No Family Hx of Anesthesia Complications History of PONV No Hx of PONV and No Hx of Motion Sickness Social History Smoking Status: Never smoker Do You Dip or Chew Tobacco: No Hx Alcohol Use: No Hx Substance Use: No substance use type: does not use Physical Exam Vital Signs Last Vital Signs Temp 36.6 C 01/26/22 22:23 Pulse 93 H 01/26/22 22:23 Resp 18 01/26/22 22:23 BP 116/68 01/26/22 22:23 Testing Laboratory Results plt 149 on 01/24/22
[2022-01-26 23:21] LABS: Hematocrit (blood only) 35.3 % (37-47); Hemoglobin 11.9 g/dL (12.0-16.0); Mean Corpuscular Hgb Conc 33.7 g/dL (32-36); Mean Corpuscular Volume 91.9 fL (80-100); Platelet Count 159 K/uL (130-400); RDW Coefficient of Variation 14.4 % (11.5-14.5); RDW Standard Deviation 48.6 fL (36.4-46.3); Red Blood Count 3.84 M/uL (4.2-5.4); White Blood Count 9.49 K/uL (4.8-10.8)
[2022-01-27] MEDS ORDERED: OXYTOCIN 30 UNITS/500 ML BAG IV PRN ×2 (00:35→05:34)
[2022-01-27] MEDS ORDERED: ERYTHROMYCIN OP OINT 1 GM PKT ONE (05:13)
[2022-01-27] MEDS ORDERED: ACETAMINOPHEN 325 MG TAB PO PRN (05:34)
[2022-01-27] MEDS ORDERED: DIPHTHERIA/TETANUS/PERTUSSIS 0.5 ML SYR/VIAL IM ONE (05:34)
[2022-01-27] MEDS ORDERED: HYDROCORTISONE ACETATE 25 MG SUPP PR PRN (05:34)
[2022-01-27] MEDS ORDERED: oxyCODONE/ACETAMINOPHEN 5mg/325mg TAB PO PRN (05:34)
[2022-01-27] MEDS ORDERED: BENZOCAINE 20% AER SPR 82.5 GM CAN EXT PRN (05:34)
[2022-01-27] MEDS ORDERED: ACETAMINOPHEN W/CODEINE #3 1 TAB PO PRN (05:34)
--- NOTE | 2022-01-27 07:58 | Anesthesia Procedure Note ---
Date of Service January 27, 2022 Anesthesia Post Epidural Note Vital Signs Vital Signs: Temp Pulse Resp BP Pulse Ox 36.8 C 88 18 99/66 L 98 01/27/22 07:05 01/27/22 07:50 01/27/22 07:35 01/27/22 07:50 01/27/22 05:31 Notes Mental Status: alert / awake / arousable and participated in evaluation Nausea / Vomiting: adequately controlled Pain: adequately controlled Airway Patency, RR, SpO2: stable & adequate BP & HR: stable & adequate Hydration State: stable & adequate Neuraxial Anesthesia: was administered and sensory block is resolving Anesthetic Complications: no major complications apparent and Pt Satisfied with anesthetic care Epidural: Removed without complications and With tip intact Notes: Epidural site clean, dry and intact. No signs of edema, erythema or bruising at insertion site. Pt instructed to request anesthesia if she has residual lower extremity numbness or if she develops lower extremity pain or weakness, back pain or headache.
[2022-01-27] MEDS: PRENATAL VITAMIN 1 TAB PO SCH (08:02)
[2022-01-27] MEDS: DOCUSATE SODIUM 100 MG CAP PO SCH ×2 (08:02→20:20)
[2022-01-27] MEDS: IBUPROFEN 600 MG TAB PO PRN ×3 (13:42→22:20)
--- NOTE | 2022-01-27 14:07 | Delivery Summary ---
DATE OF SERVICE: 01/27/2022 DELIVERY NOTE: She is a 5, para 3, blood type is O positive, group B strep negative, gestati on of 37 weeks and 5 days. The patient's course was complicated by one previous hospitaliza tion for premature labor at 27 weeks, in which she got 2 doses of Celestone and she got 2 other doses of Celestone in the office at about 34 weeks because she was having contractions and was concerned a bout having premature labor. She was admitted about 3 days prior when she was 37 weeks and 1-2 days. She contracted through the night. Cervical change, she went from 3-4 to 5, but then her labor sto pped, contractions stopped completely and eventually we sent her home. She was seen in the office on Tuesday. At that time, she was 5 cm plus. She went home, called later that evening, said they were on their way into the hospital, she had contractions for every 5 minutes for an hour and a half. When she got to the hospital, we checked her, she was 6 cm with bulging membranes. She was then give n fluids, given an epidural at her request. We delayed rupturing the amniotic sac because of some sta t C-sections. I started her on Pitocin to augment her contractions, broke the water. The amniotic f luid was blood-tinged. We continued to up the Pitocin. She went to full dilatation, pushed like 2 t imes, pushed out a live female via direct occiput anterior position over an intact perineum. A llowed the cord to pulse for 1 minute and clamped it, and the father cut it. I collected cord blood. With IV Pitocin running, removed the placenta intact. Uterus contracted nicely. There was a left-s ided periurethral laceration that was bleeding quite profusely, we used a 3-0 Vicryl in a running sut ure to suture this and create good hemostasis. There was another superficial one on the right side, in which we also used the continuous suture to sew. Following this, hemostasis was excellent. The p erineum was intact. At the nurse's request, I drained the bladder. Estimated blood loss was 100 mL. The patient tolerated the procedure well and left the delivery room in good condition. Job ID: [id number]
[2022-01-28] MEDS: IBUPROFEN 600 MG TAB PO PRN (04:44)
[2022-01-28 06:09] LABS: Hematocrit (blood only) 33.2 % (37-47); Hemoglobin 11.2 g/dL (12.0-16.0); Mean Corpuscular Hemoglobin 30.8 pg (25-34); Mean Corpuscular Hgb Conc 33.7 g/dL (32-36); Mean Corpuscular Volume 91.2 fL (80-100); Mean Platelet Volume 10.9 fL (7.4-10.4); Platelet Count 137 K/uL (130-400); RDW Coefficient of Variation 14.5 % (11.5-14.5); Red Blood Count 3.64 M/uL (4.2-5.4); White Blood Count 7.67 K/uL (4.8-10.8)
[2022-01-28] MEDS: PRENATAL VITAMIN 1 TAB PO SCH (08:11)
[2022-01-28] MEDS: DOCUSATE SODIUM 100 MG CAP PO SCH (08:11)
--- NOTE | 2022-01-28 09:03 | Obstetrical Progress Note ---
Date of Service January 28, 2022 Assessment & Plan Admission and Anticipated Discharge Date Admission Date: January 26, 2022 Subjective abdomen soft and non tender no calf tenderness ambulating well vaginal bleeding scant hgb 11.2 Results & Data ([facility]) Vital Signs (Past 12 Hours) Vital Signs Temp Pulse Resp BP 01/28/22 07:14 36.4 C L 73 16 98/63 L 01/28/22 05:25 36.4 C L 73 16 95/69 L 01/27/22 23:00 36.7 C 76 18 93/60 L
[2022-01-28] MEDS ORDERED: bisacodyL 5 MG TABEC PO SCH (20:00)
[2022-01-29] MEDS ORDERED: bisacodyL 10 MG SUPP PR PRN
== END 2022-01-28 10:36 | disposition home or self-care (01) | DRG 807 ==
LOC: OPB 22:04 → 4S1 22:05 → 4E1 01-27 09:00

== ENCOUNTER 2023-03-17 19:25 | Observation (INO) ==
[2023-03-17] MEDS ORDERED: SODIUM CHLORIDE 0.9% 1000ML 1,000 ML IV ONE ×2 (19:56→20:23)
[2023-03-17] MEDS ORDERED: ONDANSETRON INJ 2 MG/ML 2 ML VIAL IV STA (20:23)
[2023-03-17] MEDS ORDERED: MoRPHine SULFATE 10 MG/ML CARP/VIAL IV STA (20:23)
--- NOTE | 2023-03-17 20:23 | Emergency Department Note ---
Impression & Plan Ruptured ectopic , Abdominal pain ED Provider Note NAME: GERBER WHIPPLE AGE: 27 SEX: F : 1995 ARRIVES VIA: Walk-In INFORMANT: Patient ED PROVIDER(S): Michael Alvarez DO CHIEF COMPLAINT: abdominal pain HPI: Patient is a 27-year-old female who presents to the ER who is a G6 with 3 living children and several miscarriages that presents to the ER for right tubal . Was given methotrexate yesterday around 2:00. Started having cramping and severe pain around 5 PM tonight. Follows with Dr. Muñoz. Associate with nausea. No vomiting. Denies any dysuria, urgency, or frequency. PAST MEDICAL HISTORY:See Below PAST SURGICAL HISTORY:See Below FAMILY HISTORY:See Below SOCIAL HISTORY:See Below HOME MEDICATIONS:See Below ALLERGIES:See Below VITALS:See Below PHYSICAL EXAMINATION: GENERAL: Sitting up in bed, alert, well appearing, well nourished, no distress, non-toxic EYE EXAM: normal conjunctiva. OROPHARYNX: no exudate, no erythema, lips, buccal mucosa, and tongue normal and mucous membranes are moist NECK: supple, no nuchal rigidity, no adenopathy, non-tender LUNGS: Clear to auscultation. Normal chest wall mechanics HEART: no murmurs, S1 normal and S2 normal ABDOMEN: abdomen soft, TTP in r mid abd, normo-active bowel sounds, no masses, +guarding UPPER EXTREMITIES: upper extremities are grossly normal. LOWER EXTREMITIES: No pitting edema. NEURO EXAM: Normal sensorium, cranial nerves II-XII grossly intact, normal speech, no gross weakness of arms, no gross weakness of legs. MEDICAL DECISION MAKING: Patient is a 27-year-old female who presents the ER for right lower quadrant abdominal pain with a known ectopic. IV was established blood was obtained. External records were reviewed. Labs show no significant leukocytosis or ane kaylan. BMP along LFTs bilirubin lipase was unremarkable. hCG at 3800. COVID was negative. Patient was O+. Ultrasound was obtained and showed a ruptured ectopic. She did receive methotrexate yesterday. Consulted Dr. Medley and patient was taken to the OR emergently. Patient was given IV fluids and morphine. She was typed and crossed. PRBCs was not given. 2 large-bore IVs were established. Patient remained stable while in the ER. Triage Nursing notes reviewed. Limited review of prior medical records performed Vital Signs: reviewed and remarkable for tachy Differential diagnosis: Differential diagnoses includes but is not limited to gastritis, peptic ulcer disease, GERD, gallbladder disease, pancreatitis, small bowel obstruction, ap pendicitis, diverticulitis, hernia, urinary tract infection, torsion, /ectopic (if female), perforation, trauma, infectious. ER treatment provided: See below Diagnostics interpreted by me include EKG and cardiac monitoring as listed below : -Cardiac Monitoring: An order was placed for continuous cardiac monitoring. The monitor shows a rate of 90 with sinus rhythm. -ECG: none -Laboratory studies:Interpreted by me as stated above in MDM and shown below. Imaging studies: Xrays: As interpreted by me:none CTs show: none Ultrasound shows ruptured ectopic Consultation(s): As described in [facility] Procedures:none Critical Care: I have personally spent 32 minutes of critical care time in the direct management of this patient. This includes bedside care, interpretation of diagnostic studies, and testing, discussion with consultants, patient, and family members, and other required patient management activities. This 32 minutes is in excess of all separately billable procedures. Past Med/Surg History Medical History (Updated 03/17/23 @ 23:49 by Michael Alvarez DO) Anxiety Anxiety and depression Asthma Uses Albuterol Inhaler PRN History of mononucleosis VERBALIZED "REOCCURING MONO" Surgical History Family history of reaction to anesthesia MOTHER-NAUSEA History of esophagogastroduodenoscopy (EGD) [place] teeth extracted Family History Other No known health problems No significant family history Social History Smoking Status: Never smoker Second Hand Exposure: Yes (IN THE PAST); Do You Dip or Chew Tobacco: No; Hx Alcohol Use: No Hx Substance Use: No Preferred Language: Khmer Communication Ability: Effective Visual Impairment: No Limitations Hearing Ability: Normal Television Installer Helper Required: No Beliefs That Will Affect Care: None marital status: Single Current Living Situation: Family and Significant Other Current Living Situation Comment: lives with significant other and 2 kids (50/50) custody with their FOB Feels Safe at Home: Yes Assistive Devices: Glasses Allergies Allergies Allergy/AdvReac Type Severity Reaction Status Date / Time cashew nut Allergy Intermediate MOUTH BUMPS Verified 03/17/23 22:37 Home Meds Home Medications Medication Instructions Recorded Confirmed albuterol sulfate 90 mcg/actuation 2 puff inhalation Q6H PRN Wheezing 04/05/20 0 03/17/23 aerosol inhaler albuterol sulfate 2.5 mg/3 mL 2.5 mg inhalation Q6H PRN 08/27/20 03/17/23 (0.083 %) solution for nebulization Shortness Of Breath Or Wheezing duloxetine 20 mg capsule,delayed 20 mg PO DAILY 03/16/23 03/17/23 release (Cymbalta) acetaminophen 500 mg tablet 1,000 mg PO Q6H PRN Pain 03/17/23 03/17/23 (Tylenol Extra Strength) cyanocobalamin (vitamin B-12) 1,000 mcg PO DAILY 03/17/23 03/17/23 1,000 mcg tablet (Vitamin B-12) thiamine HCl (vitamin B1) 100 mg 0 mg PO DAILY 03/17/23 03/17/23 tablet (Vitamin B-1) triamcinolone acetonide 0.1 % 1 applic topical DIRECTED 03/17/23 03/17/23 topical cream Results & Data (ED) Vital Signs Vital Signs - 24 hr 03/17/23 19:37 03/17/23 19:58 03/17/23 22:52 Temperature 36.2 C L Temperature Source Skin Pulse Rate 103 H 94 H Pulse Rate [Apical] 103 H Pulse Rhythm Respiratory Rate 18 20 Respiratory Effort / Characteristics Non-Labored Non-Labored Spontaneous Respiratory Depth Normal Normal Blood Pressure 116/78 Blood Pressure [Right Arm] 103/67 Blood Pressure Mean 90 Blood Pressure Mean [Right Arm] 79 Pulse Oximetry 100 97 Oxygen Delivery Method Room Air Room Air Sepsis Recent Fever Within 48 Hours No Sepsis New/Unexplained Change in Mental Status No Sepsis Action Taken by Nursing No Action Required 03/17/23 22:52 Temperature Temperature Source Pulse Rate 92 H Pulse Rate [Apical] Pulse Rhythm Regular Respiratory Rate Respiratory Effort / Characteristics Respiratory Depth Blood Pressure Blood Pressure [Right Arm] Blood Pressure Mean Blood Pressure Mean [Right Arm] Pulse Oximetry 97 Oxygen Delivery Method Room Air Sepsis Recent Fever Within 48 Hours Sepsis New/Unexplained Change in Mental Status Sepsis Action Taken by Nursing Laboratory Data 03/17/23 19:51 03/17/23 19:51 Lab Results 03/17/23 03/17/23 03/17/23 Range/Units 19:50 19:50 19:51 WBC 8.13 (4.8-10.8) K/ul RBC 4.48 (4.20-5.40) M/uL Hgb 14.0 (12.0-16.0) g/dl Hct 40.5 (37.0-47.0) % MCV 90.4 (80.0-100.0) fL MCH 31.3 (25.0-34.0) pg MCHC 34.6 (32.0-36.0) g/dL RDW Std Deviation 40.7 (36.4-46.3) fL RDW Coeff of Vanesa 12.4 (11.5-14.5) % Plt Count 187 (130-400) K/uL MPV 11.0 (9.4-12.4) fL Sodium (136-145) mmol/L Potassium (3.5-5.1) mmol/L Chloride (98-107) mmol/L Carbon Dioxide (21-32) mmol/L Anion Gap (3-11) BUN (6-23) mg/dl Creatinine (0.6-1.2) mg/dl Est Cr Clr Drug Dosing ml/min Est GFR ( Amer) ml/min Est GFR (Non-Af Amer) ml/min BUN/Creatinine Ratio (10-20) Glucose (70-99(Fasting)) mg/dl Calcium (8.6-10.3) mg/dl Total Bilirubin (0.2-1.0) mg/dl Direct Bilirubin (0-0.2) mg/dl AST (13-39) U/L ALT (7-52) U/L Alkaline Phosphatase (34-104) U/L Total Protein (6.0-8.3) gm/dl Albumin (3.4-5.0) gm/dl Lipase (11-82) U/L HCG, Quant 3803 mIU/ml SARS-CoV-2, RNA, NAAT (NEGATIVE) Blood Type O Positive Antibody Screen NEGATIVE Crossmatch See Detail 03/17/23 03/17/23 03/17/23 Range/Units 19:51 21:50 22:23 WBC (4.8-10.8) K/ul RBC (4.20-5.40) M/uL Hgb 12.6 (12.0-16.0) g/dl Hct (37.0-47.0) % MCV (80.0-100.0) fL MCH (25.0-34.0) pg MCHC (32.0-36.0) g/dL RDW Std Deviation (36.4-46.3) fL RDW Coeff of Vanesa (11.5-14.5) % Plt Count (130-400) K/uL MPV (9.4-12.4) fL Sodium 137 (136-145) mmol/L Potassium 3.7 (3.5-5.1) mmol/L Chloride 104 (98-107) mmol/L Carbon Dioxide 26 (21-32) mmol/L Anion Gap 7 (3-11) BUN 10 (6-23) mg/dl Creatinine 0.77 (0.6-1.2) mg/dl Est Cr Clr Drug Dosing 120.3 ml/min Est GFR ( Amer) 123.5 ml/min Est GFR (Non-Af Amer) 106.6 ml/min BUN/Creatinine Ratio 13.0 (10-20) Glucose 95 (70-99(Fasting)) mg/dl Calcium 9.4 (8.6-10.3) mg/dl Total Bilirubin 0.7 (0.2-1.0) mg/dl Direct Bilirubin 0.1 (0-0.2) mg/dl AST 19 (13-39) U/L ALT 12 (7-52) U/L Alkaline Phosphatase 65 (34-104) U/L Total Protein 7.5 (6.0-8.3) gm/dl Albumin 4.6 (3.4-5.0) gm/dl Lipase 22 (11-82) U/L HCG, Quant mIU/ml SARS-CoV-2, RNA, NAAT NEGATIVE (NEGATIVE) Blood Type Antibody Screen Crossmatch Administered Medications Discontinued Medications Sodium Chloride (Nss 1000ml) 1,000 mls @ 999 mls/hr IV .Q1H1M ONE Stop: 03/17/23 20:56 Last Admin: 03/17/23 20:05 Dose: 999 mls/hr Documented By: KARELY Sodium Chloride (Nss 1000ml) 1,000 mls @ 999 mls/hr IV .Q1H1M ONE Stop: 03/17/23 21:23 Last Admin: 03/17/23 21:05 Dose: 999 mls/hr Documented By: MARYBETH Morphine Sulfate (Morphine Sulfate 10 Mg/Ml Carp/Vial) 6 mg IV NOW STA Stop: 03/17/23 20:24 Last Admin: 03/17/23 21:06 Dose: 6 mg Documented By: MARYBETH Ondansetron HCl (Ondansetron Inj 2 Mg/Ml 2 Ml Vial) 4 mg IV NOW STA Stop: 03/17/23 20:24 Last Admin: 03/17/23 21:06 Dose: 4 mg Documented By: MARYBETH Imaging Data Radiologist's Impression: Ultrasound 03/17/23 19:55 Exam(s): US OB 1st TRIMESTER EXAM: US First Trimester , Transabdominal CLINICAL HISTORY: Reason for exam: rlq w/ tubal. TECHNIQUE: Real-time transabdominal obstetrical ultrasound of the maternal pelvis and a first trimester with image documentation. COMPARISON: None. FINDINGS: Gestation: The endometrial stripe measures 7.5 mm. No intrauterine gestational sac seen. Placenta/amniotic fluid: Cannot be adequately evaluated due to the early gestational age. Uterus/cervix: The uterus measures 8.8 x 4.9 x 6.2 cm. There are small nabothian cysts identified at the level of the cervix. No myometrial mass. Ovaries: The right ovary measures 3.6 x 2.2 x 2.3 cm. Nonspecific right-sided ovarian follicular cysts noted. There is a 3.2 x 2.4 x 2.7 cm complex area within the right adnexa, with a round echogenic structure measuring 3.5 mm, with a possible ectopic at this level not entirely excluded. No cardiac activity detected. The left ovary measures 2.2 x 2.7 x 1.9 cm with nonspecific follicular cysts. Free fluid: There is a large amount of free fluid within the pelvis with echogenic debris, likely hemorrhagic. This extends into the Morison's pouch and bilateral adnexal regions. IMPRESSION: Findings highly concerning for ectopic , possibly originating at the level of the right adnexa with significant amount of echogenic free fluid, likely hemorrhagic. Recommend follow-up with HUMAN RESOURCE OFFICER consultation. Electronically signed by: Aleida Lawson MD 03/17/23 21:48 PM Discharge Plan Visit Data Chief Complaint: Vaginal Bleeding Stated Complaint: VAGINAL BLEEDING,CRAMPS,BLOATED ED Provider: Michael Alvarez Discharge Problem: Ruptured ectopic , Abdominal pain Discharge Instructions Interventions: ED Discharge Assessment Last Done: 03/17/23 23:08 Forms Stand Alone Forms: [facility] Prescriptions Prescriptions: No Action albuterol sulfate 90 mcg/actuation HFA aerosol inhaler 2 puff INHALATION Q6H PRN (Reason: Wheezing) albuterol sulfate 2.5 mg /3 mL (0.083 %) solution for nebulization 2.5 mg inhalation Q6H PRN (Reason: Shortness Of Breath Or Wheezing) duloxetine [Cymbalta] 20 mg Capsule,Delayed Release(Dr/Ec) 20 mg PO DAILY cyanocobalamin (vitamin B-12) [Vitamin B-12] 1,000 mcg Tablet 1,000 mcg PO DAILY thiamine HCl (vitamin B1) [Vitamin B-1] 100 mg Tablet 0 mg PO DAILY acetaminophen [Tylenol Extra Strength] 500 mg Tablet 1,000 mg PO Q6H PRN (Reason: Pain) triamcinolone acetonide 0.1 % cream 1 applic TOPICAL DIRECTED Rx Instructions: mix with lamisal, apply to affecteed area. Referrals Referrals: Bonifacio Ramirez DO [Primary Care Provider] -
[2023-03-17 20:25] LABS: Hematocrit (blood only) 40.5 % (37.0-47.0); Mean Corpuscular Hemoglobin 31.3 pg (25.0-34.0); Mean Corpuscular Hgb Conc 34.6 g/dL (32.0-36.0); Mean Corpuscular Volume 90.4 fL (80.0-100.0); Platelet Count 187 K/uL (130-400); RDW Coefficient of Variation 12.4 % (11.5-14.5); RDW Standard Deviation 40.7 fL (36.4-46.3); Red Blood Count 4.48 M/uL (4.20-5.40); White Blood Count 8.13 K/ul (4.8-10.8)
[2023-03-17 20:43] LABS: Calcium 9.4 mg/dl (8.6-10.3); Creatinine Clr Calc Pharmacy 120.3 ml/min; Est GFR (African American) 123.5 ml/min; Est GFR (Non-African American) 106.6 ml/min; Potassium 3.7 mmol/L (3.5-5.1)
[2023-03-17] MEDS ORDERED: SODIUM CHLORIDE 0.9% 250 ML IV PRN (21:02)
[2023-03-17 21:26] LABS: Albumin Level 4.6 gm/dl (3.4-5.0); Bilirubin Direct 0.1 mg/dl (0-0.2); Bilirubin,Total 0.7 mg/dl (0.2-1.0); Total Protein 7.5 gm/dl (6.0-8.3)
--- NOTE | 2023-03-17 21:49 | Ultrasound Report ---
Exam(s): US OB 1st TRIMESTER EXAM: US First Trimester , Transabdominal CLINICAL HISTORY: Reason for exam: rlq w/ tubal. TECHNIQUE: Real-time transabdominal obstetrical ultrasound of the maternal pelvis and a first trimester with image documentation. COMPARISON: None. FINDINGS: Gestation: The endometrial stripe measures 7.5 mm. No intrauterine gestational sac seen. Placenta/amniotic fluid: Cannot be adequately evaluated due to the early gestational age. Uterus/cervix: The uterus measures 8.8 x 4.9 x 6.2 cm. There are small nabothian cysts identified at the level of the cervix. No myometrial mass. Ovaries: The right ovary measures 3.6 x 2.2 x 2.3 cm. Nonspecific right-sided ovarian follicular cysts noted. There is a 3.2 x 2.4 x 2.7 cm complex area within the right adnexa, with a round echogenic structure measuring 3.5 mm, with a possible ectopic at this level not entirely excluded. No cardiac activity detected. The left ovary measures 2.2 x 2.7 x 1.9 cm with nonspecific follicular cysts. Free fluid: There is a large amount of free fluid within the pelvis with echogenic debris, likely hemorrhagic. This extends into the Morison's pouch and bilateral adnexal regions. IMPRESSION: Findings highly concerning for ectopic , possibly originating at the level of the right adnexa with significant amount of echogenic free fluid, likely hemorrhagic. Recommend follow-up with PRODUCT SUPPORT SALES REPRESENTATIVE consultation. Electronically signed by: Aleida Lawson MD 03/17/23 21:48 PM
[2023-03-17] MEDS ORDERED: BUPIVACAINE/EPINEPHRINE 0.5% MPF 1:200,000 30 ML VIAL ONE (22:52)
[2023-03-17] MEDS ORDERED: PROPOFOL IV EMULSION 10 MG/ML 20 ML VIAL IV ONE (22:59)
[2023-03-17] MEDS ORDERED: ROCURONIUM BROMIDE 10 MG/ML 5 ML VIAL IV ONE (22:59)
[2023-03-17] MEDS ORDERED: MIDAZOLAM HCL 1 MG/ML 2ML VIAL ONE (22:59)
[2023-03-17] MEDS ORDERED: SUCCINYLCHOLINE 100MG/5ML SYR IV ONE (22:59)
[2023-03-17] MEDS ORDERED: DEXAMETHASONE SOD INJ 4 MG/ML VIAL ONE (22:59)
[2023-03-17] MEDS ORDERED: ONDANSETRON INJ 2 MG/ML 2 ML VIAL ONE (22:59)
[2023-03-17] MEDS ORDERED: LIDOCAINE 2% 2 ML VIAL/AMP(20MG/ML) INFIL ONE (22:59)
[2023-03-17] MEDS ORDERED: fentaNYL citrate PF 100 MCG/2 ML VIAL ONE (22:59)
--- NOTE | 2023-03-17 23:02 | History and Physical Report ---
CHIEF COMPLAINT: Abdominal pain, ectopic . HISTORY OF PRESENT ILLNESS: The patient is a 27-year-old 6, para 3. She had two spontaneous ABs and presently being admitted for right sided ruptured ectopic . She is in good general health. She is on no chronic pills or medication. She received a dose of methotrexate on 3 after having been diagnosed by ultrasound with a right sided ectopic. She was doing well until , the day of admission where she began to experience severe cramping, was seen in the ER. Eval uation in the ER showed a ruptured right sided ectopic with large to moderate amount of intraperitone al bleeding. Presently being scheduled for a laparoscopic right salpingectomy. FAMILY HISTORY: She has 3 children in good health. ALLERGIES: No known drug allergies. PAST SURGICAL HISTORY: She has had her wisdom teeth removed. MEDICATIONS: Her only medication is Cymbalta. SOCIAL HISTORY: No smoking, no excessive alcohol intake. She is a cktp-th-yhyr mom. FAMILY HISTORY: Her mom is 47. Her dad is 47. She has a half-brother and full brother, both in [facility]. REVIEW OF SYSTEMS: HEAD: No symptoms of frequent or severe headaches. EYES: No symptoms of blurred vision or double vision. EARS: No symptoms of frequent ear infections or difficulty hearing. GENERAL: Well-developed, well-nourished 27-year-old 6, para She is in a moderate amount of distress due to abdominal pain and discomfort. Palpation of the abdomen revealed moderate tendernes s. PELVIC: Vaginal bleeding was scant. MUSCULOSKELETAL: Negative. IMPRESSION OF THIS CASE: Ruptured right sided ectopic . Job ID: [id number]
[2023-03-17] MEDS ORDERED: fentaNYL citrate PF 100 MCG/2 ML VIAL IV PRN (23:09)
[2023-03-17] MEDS ORDERED: ONDANSETRON INJ 2 MG/ML 2 ML VIAL IV PRN (23:09)
[2023-03-17] MEDS ORDERED: PROMETHAZINE HCL 6.25 MG in SODIUM CHLORIDE 0.9% 50 ML IV PRN (23:09)
[2023-03-17] MEDS ORDERED: ATROPINE SULFATE 0.1 MG/ML 10ML SYR IV PRN (23:09)
[2023-03-17] MEDS ORDERED: ePHEDrine sulfate 50 MG/ML AMP IV PRN (23:09)
--- NOTE | 2023-03-17 23:09 | Anesthesiology Consultation ---
Date of Service March 17, 2023 Assessment & Plan (1) Encounter for pre-operative examination: Chart Review Chart Review: Patient NOT seen in Pre Admission Testing emergent surgery Consults Requested none History Surgery Operation Date: 03/17/23 23:30 Proposed Procedures p Laparoscopic Ectopic - Johnathan Medley MD Height/Weight Height: 5 ft 6 in Weight: 83.1 kg Allergies Allergy/AdvReac Type Severity Reaction Status Date / Time cashew nut Allergy Intermediate MOUTH BUMPS Verified 03/17/23 22:37 Medications Home Medications Medication Instructions Recorded Confirmed Last Taken albuterol sulfate 90 mcg/actuation 2 puff inhalation Q6H PRN Wheezing 04/05/20 03/17/23 1 Week Ago aerosol inhaler ~11/13/21 albuterol sulfate 2.5 mg/3 mL 2.5 mg inhalation Q6H PRN 08/27/20 03/17/23 1 Week Ago (0.083 %) solution for nebulization Shortness Of Breath Or Wheezing ~11/13/21 duloxetine 20 mg capsule,delayed 20 mg PO DAILY 03/16/23 03/17/23 Unknown release (Cymbalta) acetaminophen 500 mg tablet 1,000 mg PO Q6H PRN Pain 03/17/23 03/17/23 Unknown (Tylenol Extra Strength) cyanocobalamin (vitamin B-12) 1,000 mcg PO DAILY 03/17/23 03/17/23 Unknown 1,000 mcg tablet (Vitamin B-12) thiamine HCl (vitamin B1) 100 mg 0 mg PO DAILY 03/17/23 03/17/23 Unknown tablet (Vitamin B-1) triamcinolone acetonide 0.1 % 1 applic topical DIRECTED 03/17/23 03/17/23 Unknown topical cream Past Medical History Medical History (Updated 03/17/23 @ 23:08 by Aftab Payton DO) Anxiety Anxiety and depression Asthma Uses Albuterol Inhaler PRN History of mononucleosis VERBALIZED "REOCCURING MONO" Past Family History Family History Other No known health problems No significant family history Past Surgical History Surgical History Family history of reaction to anesthesia MOTHER-NAUSEA History of esophagogastroduodenoscopy (EGD) [place] teeth extracted Social History Smoking Status: Never smoker Do You Dip or Chew Tobacco: No Hx Alcohol Use: No Hx Substance Use: No substance use type: does not use Physical Exam Vital Signs Last Vital Signs Temp 97.2 F L 03/17/23 19:37 Pulse 103 H 03/17/23 22:52 Resp 20 03/17/23 22:52 BP 103/67 03/17/23 22:52 Pulse Ox 97 03/17/23 22:52 O2 Del Method Room Air 03/17/23 22:52 Testing Laboratory Results 03/17/23 22:23 03/17/23 19:51 HCG, Quant 3803 mIU/ml 03/17/23 19:50 Blood Type O Positive 03/17/23 19:50 Antibody Screen NEGATIVE 03/17/23 19:50 03/17/23 19:50 HCG, Quant 3803
[2023-03-18] MEDS ORDERED: fentaNYL citrate PF 100 MCG/2 ML VIAL ONE (00:05)
[2023-03-18] MEDS ORDERED: BUPIVACAINE/EPINEPHRINE 0.5% MPF 1:200,000 30 ML VIAL ONE (00:16)
[2023-03-18] MEDS ORDERED: SUGAMMADEX SODIUM 200 MG/2 ML VIAL IV ONE (00:22)
[2023-03-18] MEDS ORDERED: IBUPROFEN 600 MG TAB PO PRN (01:12)
[2023-03-18] MEDS ORDERED: HYDROCODONE/ACETAMOPHEN 5/325MG TAB PO PRN (01:12)
[2023-03-18] MEDS ORDERED: KETOROLAC 30 MG/ML VIAL IV PRN (01:12)
[2023-03-18] MEDS ORDERED: oxyCODONE/ACETAMINOPHEN 5mg/325mg TAB PO PRN (01:12)
--- NOTE | 2023-03-18 01:12 | Post Operative Brief Note ---
Immediate Post Op Note v1 Date of Surgery March 18, 2023 Pre & Post Diagnosis Operation Date: 03/17/23 23:30 Pre-Op Diagnosis: Ruptured ectopic Post-Op Diagnosis: Ruptured ectopic I identified the patient and participated in the time-out.: Yes Procedure Operation Date: 03/17/23 23:30 Actual Procedures p Laparoscopic right salpingectomy(Not Applicable) - Johnathan Medley MD Surgeon Johnathan Medley MD Erecting Crane Operator none Estimated Blood Loss 30 Findings Consistent with Post-Op Diagnosis ruptured right sided ectopic Drains Archibald Catheter Anesthesia Type General Complications none
[2023-03-18] MEDS ORDERED: ALBUTEROL HFA 8 GM INHALER INH PRN (01:13)
[2023-03-18] MEDS ORDERED: ALBUTEROL 0.083% NEBU SOLN 3 ML VIAL INH PRN (01:13)
[2023-03-18] MEDS ORDERED: ACETAMINOPHEN 500 MG TAB PO PRN (01:13)
[2023-03-18] MEDS ORDERED: TRIAMCINOLONE ACET 0.1% CR 15 GM TUBE TOP PRN (01:15)
--- NOTE | 2023-03-18 01:42 | Anesthesiology Progress Note ---
Date of Service March 18, 2023 Anesthesia Post Procedure Vital Signs Vital Signs: Temp Pulse Pulse Resp BP BP BP 03/18/23 01:25 116 H 13 03/18/23 01:25 113/67 03/18/23 01:20 120 H 18 03/18/23 01:20 117/60 03/18/23 01:15 117 H 18 03/18/23 01:15 118/63 03/18/23 01:10 97.7 F 106 H 15 112/60 03/17/23 22:52 92 H 03/17/23 22:52 103 H 20 103/67 03/17/23 19:58 94 H 03/17/23 19:37 97.2 F L 103 H 18 116/78 Pulse Ox O2 Del Method O2 Flow Rate 03/18/23 01:25 97 03/18/23 01:25 03/18/23 01:20 97 03/18/23 01:20 03/18/23 01:15 97 03/18/23 01:15 03/18/23 01:10 100 Nasal Cannula 2 03/17/23 22:52 97 Room Air 03/17/23 22:52 97 Room Air 03/17/23 19:58 03/17/23 19:37 100 Room Air Transfer of Care Handoff Completed per policy Notes Mental Status: alert / awake / arousable and participated in evaluation Patient Amnestic to Procedure: Yes Nausea / Vomiting: adequately controlled Pain: adequately controlled Airway Patency, RR, SpO2: stable & adequate BP & HR: stable & adequate Hydration State: stable & adequate Anesthetic Complications: no major complications apparent and Pt Satisfied with anesthetic care
--- NOTE | 2023-03-18 03:00 | Operative Report (OR) ---
PROCEDURE PERFORMED: This is an operative notation of a laparoscopic removal of right-sided tube and ectopic . INDICATIONS FOR SURGERY: Pelvic pain and a significant amount of intraperitoneal blood on ultrasound . PREOPERATIVE DIAGNOSIS: Ruptured right sided ectopic. POSTOPERATIVE DIAGNOSIS: Ruptured right sided ectopic, pathology pending. SURGEON: Ghassan Medley MD. ESTIMATED BLOOD LOSS: 30 mL. ANESTHESIA: General. OPERATIVE FINDING AND PROCEDURE: The patient was brought to the OR table, correctly identified by ar henok and conversation. She was placed up in stirrups. Perineum and vagina were painted with Betadi ne paint along with the lower abdomen. Catheter was inserted into the bladder. Weighted speculum wa s placed in the posterior vagina. Anterior lip of the cervix was grasped with single tooth tenaculum . An acorn cannula was inserted into the cervical canal for manipulation of the uterus. Now, attent ion was turned to the upper abdomen. Subumbilical area was infiltrated with local with epinephrine. Stab wound was placed and the Veress needle was inserted into the abdominal cavity. Position was ch ecked with normal saline and a negative drop test. We then used a carbon dioxide gas 3.5 liters, ins ufflated the abdomen, widened the trocar site and then inserted a 10 mm trocar and sleeve. Trocar wa s removed and a laparoscope was inserted with good visualization of pelvic structures was obtained at this time, there was obviously a hemorrhage filling the pelvis. We made a second puncture site in t he midline 3 fingerbreadths above the pubic symphysis. This area was also infiltrated with local wit h epinephrine and a 5 mm trocar and sleeve was inserted under direct visualization. Gravlee washer wa s inserted and we removed a lot of the blood in the cul-de-sac. There was a lot of organized clot an d the fimbria, were able to expose the tube, the ectopic basically filled most of the mid p ortion of the right fallopian tube. We then made another site on the left lower quadrant. This area was infiltrated with local with epinephrine. Then, another 5 mm trocar and sleeve. Then, I used bi polar cauterization forceps. I held the tube up and I cauterized the base of the tube serially and t hen cut it with laparoscopic scissors until I had removed the entire tube. I took photographs when t he tube had been removed. Hemostasis was excellent. I removed the 5 mm trocar and sleeve and from t he midline above the pubic symphysis inserted a 10 mm trocar and sleeve, inserted a basket, then plac ed the ectopic in the basket and removed it. Following this, hemostasis was good. Picture s were taken. The ports were then sutured with interrupted Vicryl. The patient tolerated the proced ure well and left the OR in good condition. Job ID: [id number]
[2023-03-18] MEDS ORDERED: SODIUM CHLORIDE 0.9% 1000ML 1,000 ML IV SCH (06:00)
[2023-03-18] MEDS ORDERED: DULoxetine HCL 20 MG CAP PO SCH (09:00)
[2023-03-18] MEDS ORDERED: CYANOCOBALAMIN (B-12) 500 MCG TABLET PO SCH (09:00)
[2023-03-18 09:49] LABS: Hematocrit (blood only) 37.2 % (37.0-47.0); Hemoglobin 12.7 g/dl (12.0-16.0)
--- NOTE | 2023-03-18 11:35 | Obstetrical Progress Note ---
Date of Service March 18, 2023 Assessment & Plan Admission and Anticipated Discharge Date Admission Date: March 18, 2023 Subjective abdomen soft and non tender bandages are dry ambulating well pain has resolved hgb 12.7 hcg quant 1601 Results & Data Vital Signs (Past 12 Hours) Vital Signs Temp Pulse Pulse Pulse Resp BP BP 03/18/23 07:45 03/18/23 07:20 36.8 C 84 16 03/18/23 03:15 36.8 C 103 H 18 112/75 03/18/23 02:12 36.6 C 89 18 03/18/23 02:17 03/18/23 02:17 18 03/18/23 01:25 116 H 13 03/18/23 01:25 113/67 03/18/23 01:20 120 H 18 03/18/23 01:20 117/60 03/18/23 01:15 117 H 18 03/18/23 01:15 118/63 03/18/23 01:10 36.5 C 106 H 15 112/60 BP Pulse Ox O2 Del Method O2 Flow Rate 03/18/23 07:45 Room Air 03/18/23 07:20 98/61 L 95 Room Air 03/18/23 03:15 98 Room Air 03/18/23 02:12 143/64 H 100 Room Air 03/18/23 02:17 Room Air 03/18/23 02:17 03/18/23 01:25 97 03/18/23 01:25 03/18/23 01:20 97 03/18/23 01:20 03/18/23 01:15 97 03/18/23 01:15 03/18/23 01:10 100 Nasal Cannula 2
--- NOTE | 2023-03-18 12:18 | Discharge Summary (DS) ---
HOSPITAL COURSE: The patient was seen in the ER with acute abdominal pain. She had been diagnosed mile melendez with a right sided ectopic and had been treated the day prior with a dose of methotr exate. She came in the ER with acute abdominal pain. Ultrasound showed a moderate amount of fluid i n the pelvis. She was taken to the OR where she underwent laparoscopic removal of a ruptured ectopic of the right fallopian tube and also suctioning out of all of the intrapelvic blood. Postoperativel y, she did well. At noon the next day, she was ambulating well, eating well. She had virtually no p ain and she requested discharge. Her hemoglobin at the time of discharge was 12.7. She was instruct ed to return to the office in 6 weeks for check and to call if she had any problems. Job ID: [id number]
== END 2023-03-18 12:00 | disposition home or self-care (01) ==
LOC: ED 19:25 → OR 23:08 → 4E1 23:08

== ENCOUNTER 2024-06-04 07:44 | Inpatient (IN) ==
--- OUTSIDE RECORDS SUMMARY | 2024-06-04 07:51 | External Medical Summary | Summary of Care ---
Author Name Unknown Organization [facility] Address [address] [place] [facility] [place] [address] Phone [phone] Care Team Providers Care Underground Utility Locator Name Role Phone Bonifacio Ramirez DO Primary Care Provider Reason for Visit * Reason Comments Return Visit Encounter Details Date Type Department Care Team (Late st Contact Info) Description 05/30/2024 9:15 AM EDT Office Visit Gynecology/Obstetric s Duquefabian Bennett [address] [place] [address] Elisabeth Lewis CRNP [address] [place] [address] Encounter for supervision of other normal in third trimester*; History of labor, current , third trimester Allergies No known active allergiesdocumented as of this encounter (statuses as of 05/30/2024) Medications Medication Sig Dispensed Refills Start Date End Date Status Albuterol Sulfate (TO GO ALBUTEROL HFA) IN puff Inhale 1 Puff by mouth every 6 hours as needed. Active AeroChamber Plus [place]-Vu PLACE ON THE INHALER 2 PUFFS 5 MINUTES UPWARDS OF 3 TIMES A DAY 11/02/2022 Active Vitamin B-1 250 MG Oral Tablet Take by mouth. Active Calcium 500/Vitamin D 500-3.125 MG-MCG Oral Tablet (Calcium Carb-Cholecalcifero l) Take by mouth. Active Complete Oral Capsule Therapy Pack Take by mouth. Active Breast Pump Use as directed 1 Each 03/26/2024 Active Iron-Vitamin C 65-125 MG Oral Tablet (Vitron C) Take 1 Tablet by mouth in the morning. 30 Tablet 5 04/09/2024 Active Additional Information Patient not taking.Reported on 05/07/2024 Vitamin B-12 1000 MCG Oral Tablet (Cyanocobalamin) Take 1 Tablet by mouth in the morning. 30 Tablet 5 04/11/2024 Active documented as of this encounter (statuses as of 05/30/2024) Active Problems Problem Noted Date Diagnosed Date Supervision of normal 04/27/2024 History of labor, cu rrent , third trimester 03/26/2024 Overview: Received betamethasone on 03/20/24 and 03/21/24; consider repeat doses at 04/04/24 if still concerned about labor. Advised patient to call if having contractions 4 or more per hour, vaginal bleeding, or LOF. Depression complicating , antepartum Maternal asthma complicating 4 EBV infection 02/26/2020 Head and neck lymphadenopathy 02/26/2020 H/O fatigue 02/26/2020 Current mild episode of major depressive disorde r 02/26/2020 Verruca 06/23/2015 Multiple pigmented nevi 06/23/2015 Estimated Date of Delivery Comme nts Yes 06/10/2024 Based on Ultraso und documented as of this encounter (statuses as of 05/30/2024) Resolved Problems Problem Noted Date Diagnosed Date Resolved Date Vomiting and diarrhea 02/26/20202023 documented as of this encounter (statuses as of 05/30/2024) Immunizations Name Administration Dates Next Due TDAP (age 10 and older)(Boostrix) 03/26/2024 documented as of this encounter Social History Tobacco Use Types Packs/Day Years Used Date Smoking Tobacco: Never Smokeless Tobacco: Never Alcohol Use Standard Drinks/Week Comments No 0 (1 standard drink = 0.6 oz pur e alcohol) Hunger Vital Sign Answer Date Recorded Within the past 12 months, y ou worried that your food would run out before you got the money to buy more. Never true 03/02/20 24 Within the past 12 months, t he food you bought just didn't last and you didn't have money to get more. Never true 03/02/2024 Childcare Answer Date Recorded Do you feel overwhelmed with taking care of a child, family member or friend? No 03/02/2024 Does your family need help f inding childcare? (Household - for ages 0-17 years) Not on file 03/02/2024 Clothing Answer Date Recorded Have you been unable to get clothing when it was really needed? No 03/02/2024 Is your family able to get c lothes or diapers when needed? (Household - for ages 0-17 years) Not on file 03/02/2024 Personal Safety Answer Date Recorded Do you feel unsafe or have concerns for your saf ety? No 03/02/2024 Do you have concerns for you r family's safety? (Household - for ages 0-17 years) Not on file 03/02/2024 Utilities Answer Date Recorded Do you have trouble paying y our heating, water, or electric bill? No 03/02/2024 Is your family able to pay t he heat, water, or electric bill? (Household - for ages 0-17 years) Not on file 03/02/2024 Does your family have access to good internet? (Household - for ages 0-17 years) Not on file 03/02/2024 Employment Status Answer Date Recorded Are you unemployed or without regular income? No 03/02/2024 Does the household have a re gular source of income? (Household - for ages 0-17 years) Not on file 03/02/2024 Social Connections Answer Date Recorded How often do you feel lonely or isolated from those around you? Sometimes 03/02/2024 Financial Resource Strain Answer Date R ecorded Do you have any trouble payi ng for your medications, or do you think you might in the future? No 03/02/2024 Does your family have troubl e paying for medicine? (Household - for ages 0-17 years) Not on file 03/02/2024 Transportation Needs Answer Date Record ed READ ONLY Do you have troubl e getting a ride to medical visits or work? Never True 03/02/2024 Does your family have a hard time getting a ride to doctors visits? (Household - for ages 0-17 years) Not on file 03/02/2024 Has lack of transportation k ept you from medical appointments, meetings, work, or from getting things needed for daily living? Check all that apply. (Adult - for ages 18 years and over) Not on file 03/02/2024 Do you (or your family) have trouble finding or paying for a ride (transportation)? (Household - for ages 0-17 years) Not on file 03/02/2024 Housing Stability Answer Date Recorded Do you currently live in a s helter or have no steady place to sleep at night? No 03/02/2024 READ ONLY Do you think you a re at risk of becoming homeless? No 03/02/2024 Does your family worry about paying for your home or becoming homeless? (Household - for ages 0-17 years) Not on file 0 03/02/2024 Are you homeless or worried that you might be in the future? (Adult - for ages 18 years and over) Not on file Are you (or your family) mukund eless or worried that you might be in the future? (Household - for ages 0-17 years) Not on file Food Insecurity Answer Date Recorded Do you need food for this week? No 03/02/2024 Are you able to get enough f ood for your family? (Household - for ages 0-17 years) Not on file 03/02/2024 Does your family need food t his week? (Household - for ages 0-17 years) Not on file 03/02/2024 Do you always have enough fo od for your family? (Household - for ages 0-17 years) Not on file 03/02/2024 Estimated Date of Delivery Comme nts Yes 06/10/2024 Based on Ultraso und Sex and Gender Information Value Date Recorded Sex Assigned at Female 10/12/2023 1:13 PM EST Gender Identity Female 10/12/2023 1:13 PM EST Sexual Orientation Straight 03/02/2024 6: 46 PM EDT Job Start Date Occupation Industry Not on file Not on file Not on file documented as of this encounter Last Filed Vital Signs Vital Sign Reading Time Taken Comments Blood Pressure 102/60 05/30/2024 8:47 AM EDT Pulse - - Temperature - - Respiratory Rate - - Oxygen Saturation - - Inhaled Oxygen Concentration - - Weight 102.1 kg (225 lb) 05/30/2024 8:47 AM EDT Height - - Body Mass Index 36.32 05/16/2024 10:31 AM EDT documented in this encounter Progress Notes * Elisabeth Lewis CRNP - 05/30/2024 8:58 AM EDT 38w3d Feeling miserable, ready to deliver. Baby is active. Having some cramping, no real contractions. Denies bleeding, LOF. Has IOL scheduled for next week. Requesting cervical check. Pelletising Extruder Operator Documentation Provider requested forest supervisor. Name of forest supervisor: CRISTY Holt * Kacy Basurto LPN - 05/30/2024 8:47 AM EDT 38w3d Denies vaginal bleeding/rom + movement Feeling pressure Requesting cervical check today IOL 06/04 documented in this encounter Plan of Treatment Health Maintenance Due Date Last Done Comments Pneumococcal Vaccine: Pediatrics (0 to 5 Years) and At-Risk Patients (6 to 64 Years) (1 of 2 - PCV) 2002 Depression Monitoring 2008 HIV Screening 2011 Hepatitis C Screening 2014 Pap Smear 2017 COVID-19 Vaccine (2022-24 season) 2023 *SPIROMETRY ONCE FOR ASTHMA-ADULT 03/29/2024 Influenza Vaccine (FLU shot) (#1) 2024 DTaP,Tdap,and Td Vaccines (6 - Td or Tdap) 03/26/2034 03/26/2024, 02/27/1998, 06/12/1997, Additional history exists Hepatitis B Vaccine Completed 09/09/1997, 01/25/1997, 1996 HPV (Gardasil) Vaccine Aged Out No lo nger eligible based on patient's age to complete this topic MENINGOCOCCAL (MENACTRA/MENVEO) Aged Out No longer eligible based on patient's age to complete this topic documented as of this encounter Goals Goal Patient Goal Type Associated Problems Recent Progress Patient-Stated? Author Reminders Care Plan OB Reminders No Mychart, Provider documented as of this encounter Medical Devices Not on filedocumented as of this encounter Visit Diagnoses Diagnosis Encounter for supervision of other normal in third trimester- Primary History of labor, current , third trimester documented in this encounter Additional Health Concerns Active Problems Noted Date Diagnosed Date OB Reminders 05/18/2024 documented as of this encounter Care Teams Underground Utility Locator Relationship Specialty Start Date End Date Bonifacio Ramirez DO [address] [place] [address] PCP - General Family Medicine 05/29/21 documented as of this encounter
--- OUTSIDE RECORDS SUMMARY | 2024-06-04 07:52 | External Medical Summary | Summary of Care ---
Author Name Unknown Organization [facility] Address [address] [facility] [address] Phone [phone] Care Team Providers Care Otc Clerk Name Role Phone Bonifacio Ramirez DO Primary Care Provider Encounter Details Date Type Department Care Team (Late st Contact Info) Description 05/21/2024 Telephone Gynecology/Obstetrics [facility] [address] [place] [address] Keshawn Sidhu MD [address] [place] [address] Allergies No known active allergiesdocumented as of this encounter (statuses as of 05/21/2024) Medications Medication Sig Dispensed Refills Start Date [...] as of this encounter (statuses as of 05/21/2024) Active Problems Problem Noted Date Diagnosed Date [...] as of this encounter (statuses as of 05/21/2024) Resolved Problems Problem Noted Date Diagnosed Date Resolved Date Vomiting and diarrhea 02/26/20202023 documented as of this encounter (statuses as of 05/21/2024) Immunizations Name Administration Dates Next Due DTaP Dipth/Tet/Acell Pertussis (Infanrix), Peds 02/27/1998,06/12/1997,03/25/1997, 997 HIB PRP-T, 4 Dose, PF, IM (H iberix, ActHib) 02/27/1998,06/12/1997,03/25/1997, 997 Hepatitis B, 0-19 yrs 09/09/1997,01/25/1997,11/10 IPV - Polio Virus Vaccine (Inact) 03/25/1997, MMR - Measles/Mumps/Rubella Vaccine 12/09/1997 OPV - Polio Virus Vaccine (Oral) 02/27/1998 TDAP (age 10 and older)(Boostrix) 03/26/2024 Varicella Vaccine (Chicken Pox) 12/09/1997 documented as of this encounter Social History [...] money to buy more. Never true 03/02/20 Within the past 12 months, t he [...] on file documented as of this encounter Miscellaneous Notes * Telephone Encounter - Rekha Rodrigez RN - 05/21/2024 1:10 PM EDT Called and got patient schedule 39w elective induction, okay per Dr. Hall. Scheduled for 06/04. Please make provider oracle applications developer aware. Patient called and made aware. She is agreeable to this date. Patient aware that depending on medical necessity, her IOL could be bumped to a different day. She is agreeable . * Telephone Encounter - Keshawn Sidhu MD - 05/21/2024 10:07 AM EDT Yes that is okay EDC is per 1st trimester US Thanks * Telephone Encounter - Rekha Rodrigez RN - 05/21/2024 9:36 AM EDT patient calling in. Requesting to be scheduled for IOL at 39w due to her discomfort from her sciatic nerve. States she was [facility] over the [facility] and whoever they saw told her she could call Tuesday to office and request to be scheduled for IOL at 39w due to discomfort. Patient was advised to discuss at upcoming visit this week and she does not want to wait until the end of the week to discuss/schedule. Please advise if ok to schedule patient for IOL at 39w for this. documented in this encounter Plan of Treatment Upcoming Encounters Date Type Department Care Team (Late st Contact Info) Description 05/25/2024 2:00 PM EDT Office Visit Gynecology/Obstetric[facility] [address] [place] [address] Sharmin Olivarez PA-Cristhian [address] [place] [address] Health Maintenance Due Date Last Done Comments Pneumococcal Vaccine: Pediatrics (0 to 5 Years) and At-Risk Patients (6 to 64 Years) (1 of 2 - PCV) 2002 Depression Monitoring 2008 HIV Screening 2011 Hepatitis C Screening 2014 Pap Smear 2017 COVID-19 Vaccine ( - 2022- season) 2023 *SPIROMETRY ONCE FOR ASTHMA-ADULT 03/29/2024 [...] Author Reminders Care Plan OB Reminders No Nimot, Provider documented as of this encounter Medical Devices Not on filedocumented as of this encounter Additional Health Concerns Active Problems Noted Date Diagnosed Date OB Reminders 05/18/2024 documented as of this encounter Care Teams Otc Clerk Relationship Specialty Start Date End Date Bonifacio Ramirez DO [address] [facility] [address] PCP - General Family Medicine 05/29/21 documented as of this encounter
--- OUTSIDE RECORDS SUMMARY | 2024-06-04 07:52 | External Medical Summary | Summary of Care ---
Author Name Unknown Organization [facility] Address [address] [facility] [address] Phone [phone] Care Team Providers Care Viscosity Inspector Name Role Phone Bonifacio Ramirez DO Primary Care Provider Encounter Details Date Type Department Care Team (Late st Contact Info) Description 05/21/2024 Telephone Gynecology/Obstetrics [facility] [address] [place] [address] Keshawn Sidhu MD [address] [place] [address] Allergies No known active allergiesdocumented as of [...] encounter Miscellaneous Notes * Telephone Encounter - Keshawn Sidhu MD [...] 05/25/2024 2:00 PM EDT Office Visit Gynecology/Obstetrics [facility] [address] [facility] [place] [address] Sharmin Olivarez PA-C [address] [place] [address] [place] [phone] Health Maintenance Due Date Last Done Comments [...] documented as of this encounter Care Teams Viscosity Inspector Relationship Specialty Start Date End Date Bonifacio Ramirez DO [address] [place] [address] PCP - General Family Medicine 05/29/21 documented as of this encounter
--- OUTSIDE RECORDS SUMMARY | 2024-06-04 07:52 | External Medical Summary | Summary of Care ---
Author Name Unknown Organization [facility] Address [address] [facility] [address] Phone [phone] Care Team Providers Care Gill Net Stringer Name Role Phone Bonifacio Ramirez DO Primary Care Provider Encounter Details Date Type Department Care Team (Late st Contact Info) Description 05/21/2024 Telephone Gynecology/Obstetrics [facility] [address] [place] [address] Keshawn Sidhu MD [address] [place] [address] Allergies No known active allergiesdocumented as of [...] 05/21/2024) Immunizations Name Administration Dates Next Due TDAP [...] No 03/02/2024 Does the household have a [place] service [place] source of income? (Household - for ages [...] they saw told her she could call Piotr to office and request to be scheduled [...] 05/25/2024 2:00 PM EDT Office Visit Gynecology/Obstetrics [facility] [address] [facility] [place] [address] Sharmin Olivarez PA-C [address] [place] [phone] Health Maintenance Due Date Last Done Comments Pneumococcal Vaccine: Pediatrics (0 to 5 Years) and At-Risk Patients (6 to 64 Years) (1 of 2 - PCV) 2002 Depression Monitoring 2008 HIV Screening 2011 Hepatitis C Screening 2014 Pap Smear 2017 COVID-19 Vaccine (2022- season) 2023 *SPIROMETRY ONCE FOR ASTHMA-ADULT 03/29/2024 [...] documented as of this encounter Care Teams Gill Net Stringer Relationship Specialty Start Date End Date Bonifacio Ramirez DO [address] [place] [address] PCP - General Family Medicine 05/29/21 documented as of this encounter
--- OUTSIDE RECORDS SUMMARY | 2024-06-04 07:52 | External Medical Summary | Summary of Care ---
Author Name Unknown Organization [facility] Address [address] [facility] [address] Phone [phone] Care Team Providers Care Labor Relations Manager Name Role Phone Bonifacio Ramirez DO Primary Care Provider Reason for Visit * Reason Comments Return Visit Encounter Details Date Type Department Care Team (Late st Contact Info) Description 05/25/2024 2:00 PM EDT Office Visit Gynecology/Obstetric [facility] [address] [facility] [place] [address] Sharmin Olivarez PA-C [address] [facility] [place] [address] Encounter for supervision of other normal in third trimester*; History of labor, current , third trimester; Maternal asthma complicating ; Depression complicating , antepartum Allergies No known active allergiesdocumented as of this encounter (statuses as of 05/25/2024) Medications Medication Sig Dispensed Refills Start Date [...] as of this encounter (statuses as of 05/25/2024) Active Problems Problem Noted Date Diagnosed Date [...] as of this encounter (statuses as of 05/25/2024) Resolved Problems Problem Noted Date Diagnosed Date Resolved Date Vomiting and diarrhea 02/26/20202023 documented as of this encounter (statuses as of 05/25/2024) Immunizations Name Administration Dates Next Due TDAP [...] Sign Reading Time Taken Comments Blood Pressure 112/68 05/25/2024 2:02 PM EDT Pulse - - Temperature - - Respiratory Rate - - Oxygen Saturation - - Inhaled Oxygen Concentration - - Weight - - Height - - Body Mass Index - - documented in this encounter Progress Notes * Brittany Moreland LPN - 05/25/2024 2:02 PM EDT 37w5d Denies any concerns * Sharmin Olivarez PA-C - 05/25/2024 1:55 PM EDT Susan Angel is a 28 year old female here for her routine OB appointment at 37w5d Her Estimated Date of Delivery: 06/10/24 IOL scheduled 06/04. Instructions given today. She is reporting intermittent contractions and pelvic pressure. Nothing regular/timeable. She was also recently seen on L&D at [facility] for LOF concerns. ROM ruled out and she was D/C home. REVIEW OF SYSTEMS She affirms movement. Denies vaginal bleeding, regular contractions, N/V, headaches, vision changes, chest pain, RUQ pain. PHYSICAL EXAM Filed Vitals: 05/25/24 1402 BP: 112/68 +FHT 120s Fundal height 38 cm CE: 30-40%/3cm/-3 Analytical Statistician Documentation Patient offered director instrumentation and accepted. Name of director instrumentation: Mary Ojeda LPN. ASSESSMENT/PLAN Encounter for supervision of other normal in third trimester (Primary) History of labor, current , third trimester Maternal asthma complicating Depression complicating , antepartum Supervision of - labor precautions and kick counts reviewed RTO in 1 week for ODILON Olivarez PA-C 05/25/2024 documented in this encounter Plan of Treatment Upcoming Encounters Date Type Department Care Team (Late st Contact Info) Description 05/30/2024 9:15 AM EDT Office Visit Gynecology/Obstetrics [address] [place] [address] Elisabeth Lewis CRNP [address] [place] [address] Health Maintenance Due Date Last Done Comments Pneumococcal Vaccine: Pediatrics (0 to 5 Years) and At-Risk Patients (6 to 64 Years) (1 of 2 - PCV) 2002 Depression Monitoring 2008 HIV Screening 2011 Hepatitis C Screening 2014 Pap Smear 2017 COVID-19 Vaccine (1 - 2022-24 season) 2023 *SPIROMETRY ONCE FOR ASTHMA-ADULT 03/29/2024 [...] History of labor, current , third trimester Maternal asthma complicating Other current maternal conditions classifiable elsewhere, complicating , childbirth, or the puerperium, unspecified as to episode of care Depression complicating , antepartum Mental disorders of mother, antepartum documented in this encounter Additional Health Concerns Active Problems Noted Date Diagnosed Date OB Reminders 05/18/2024 documented as of this encounter Care Teams Labor Relations Manager Relationship Specialty Start Date End Date Bonifacio Ramirez DO [address] [place] [place] [address] PCP - General Family Medicine 05/29/21 documented as of this encounter
[2024-06-04] MEDS ORDERED: CALCIUM CARBONATE 500 MG CHEWABLE TAB PO PRN (08:41)
[2024-06-04] MEDS ORDERED: LIDOCAINE 1% LOCAL 20 ML VIAL INFIL PRN (08:41)
[2024-06-04] MEDS ORDERED: OXYTOCIN 30 UNITS/NSS 30 UNITS/500 ML BAG IV PRN ×2 (08:41→18:01)
[2024-06-04] MEDS ORDERED: DINOPROSTONE 10 MG INSERT PV ONE (09:00)
--- NOTE | 2024-06-04 09:16 | History & Physical Report ---
Date of Service June 04, 2024 Assessment & Plan (1) 39 weeks gestation of : Plan: 28-year-old -0-3-3 at 39 weeks of gestation who was scheduled for induction of labor at term with favorable cervix, Vital signs stable afebrile, GBS negative, heart rate reassuring, Plan to admit, labs, IV oxytocin per protocol, epidural and patient request, AROM later, All questions were answered. Admission and Anticipated Discharge Date Admission Date: June 04, 2024 History of Present Illness Primary Care Provider: Bonifacio Ramirez DO Patient is an 28-year-old -0-3-3 at 39 weeks of gestation who was scheduled for induction of labor at term with favorable cervix, Patient has no complaints, declines contractions, leakage of fluid, vaginal bleeding. She reports good movements. Her has been uncomplicated, GBS negative patient history of mild asthma, has not used an inhaler during this , Patient has history of anxiety she used to take Cymbalta before but has not taking it during . Allergies Allergy/AdvReac Type Severity Reaction Status Date / Time cashew nut Allergy Intermediate MOUTH BUMPS Verified 03/18/23 02:30 morphine AdvReac Intermediate Nausea Verified 06/04/24 08:20 Home Medications Medication Instructions Recorded Confirmed Type albuterol sulfate 90 mcg/actuation 2 puff inhalation Q6H PRN Wheezing 04/05/20 06/04/24 History aerosol inhaler albuterol sulfate 2.5 mg/3 mL 2.5 mg inhalation Q6H PRN 08/27/20 06/04/24 History (0.083 %) solution for nebulization Shortness Of Breath Or Wheezing cyanocobalamin (vitamin B-12) 1,000 mcg PO DAILY 03/17/23 06/04/24 History 1,000 mcg tablet (Vitamin B-12) acetaminophen 500 mg tablet 1,000 mg PO Q6H PRN Pain 06/04/24 06/04/24 History vits no.124-ferrous fum 1 tab PO DAILY 06/04/24 06/04/24 History 27 mg iron-folic acid 800 mcg tablet ( Vitamin) Patient History Medical History Fibromyalgia Ectopic of right ovary right tube removed 04-01 History of mononucleosis VERBALIZED "REOCCURING MONO" Anxiety and depression Anxiety Asthma Uses Albuterol Inhaler PRN Surgical History Family history of reaction to anesthesia MOTHER-NAUSEA History of esophagogastroduodenoscopy (EGD) [place] teeth extracted Family History Other No known health problems No significant family history Social History Smoking Status: Never smoker Second Hand Exposure: Yes (IN THE PAST); Do You Dip or Chew Tobacco: No; Hx Alcohol Use: No Hx Substance Use: No Preferred Language: Ivorian Communication Ability: Effective Visual Impairment: No Limitations Hearing Ability: Normal [employer] Traffic [employer] Required: No Beliefs That Will Affect Care: None marital status: Single Current Living Situation: Significant Other Current Living Situation Comment: lives with significant other and 3 kids (50/50) 2 custody with their FOB, current occupational status: employed Other Information That Helps Us Care for You: No other: [facility] Feels Safe at Home: Yes Safety Concerns: Feels Safe At This Time Diet: regular Gender Identity: Female Assistive Devices: None OB History 3 full-term vaginal deliveries, 2 first trimester SAB, 1 ectopic in 2022 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
[2024-06-04] MEDS: LACTATED RINGER'S 1,000 ML IV PRN (09:32)
[2024-06-04] MEDS: OXYTOCIN 30 UNITS/NSS 30 UNITS/500 ML BAG IV PRN (09:34)
[2024-06-04 09:58] LABS: Hematocrit (blood only) 32.5 % (37.0-47.0); Hemoglobin 10.8 g/dl (12.0-16.0); Mean Corpuscular Hemoglobin 29.8 pg (25.0-34.0); Mean Corpuscular Hgb Conc 33.2 g/dL (32.0-36.0); Mean Corpuscular Volume 89.5 fL (80.0-100.0); Mean Platelet Volume 11.6 fL (9.4-12.4); Platelet Count 124 K/uL (130-400); RDW Coefficient of Variation 13.9 % (11.5-14.5); RDW Standard Deviation 45.5 fL (36.4-46.3); Red Blood Count 3.63 M/uL (4.20-5.40); White Blood Count 7.91 K/ul (4.8-10.8)
[2024-06-04] MEDS ORDERED: ePHEDrine sulfate 50 MG/ML AMP ONE (13:06)
[2024-06-04] MEDS ORDERED: BUPIVACAINE 0.25% PF 30 ML VIAL EPI STA (13:26)
[2024-06-04] MEDS ORDERED: NALOXONE HCL 0.4 MG/1 ML VIAL/CARP IV PRN (13:26)
[2024-06-04] MEDS ORDERED: NALBUPHINE HCL 5 MG in SYRINGE 0 ML IV PRN (13:26)
[2024-06-04] MEDS ORDERED: fentaNYL citrate PF 100 MCG/2 ML VIAL EPI STA (13:26)
[2024-06-04] MEDS ORDERED: ONDANSETRON INJ 2 MG/ML 2 ML VIAL IV PRN (13:26)
[2024-06-04] MEDS ORDERED: fentANYL 2 MCG/ML BUPIVacaine 0.125%-NSS 100ML BAG EPI PRN (13:26)
[2024-06-04] MEDS ORDERED: ePHEDrine sulfate 50 MG/ML AMP IV PRN (13:26)
[2024-06-04] MEDS ORDERED: BUPIVACAINE 0.25% PF 30 ML VIAL EPI PRN (13:26)
[2024-06-04] MEDS ORDERED: NALOXONE HCL 1 MG in SODIUM CHLORIDE 0.9% 1,000 ML IV PRN (13:26)
[2024-06-04] MEDS ORDERED: ROPIVACAINE 0.5% PF 5 MG/ML 20 ML VIAL EPI PRN (13:26)
[2024-06-04] MEDS ORDERED: SODIUM CHLORIDE 0.9% PF INJ 10 ML VIAL EPI STA (13:26)
[2024-06-04] MEDS ORDERED: LIDOCAINE 2% MPF LOCAL 5 ML VIAL EPI PRN (13:26)
[2024-06-04] MEDS ORDERED: fentaNYL citrate PF 100 MCG/2 ML VIAL EPI PRN (13:26)
[2024-06-04] MEDS ORDERED: LIDOCAINE 2%/EPINEPHRINE 1:200,000 20 ML PF EPI STA (13:26)
[2024-06-04] MEDS ORDERED: SODIUM CHLORIDE 0.9% PF INJ 10 ML VIAL EPI PRN (13:26)
[2024-06-04] MEDS ORDERED: diphenhydrAMINE 50 MG/ML VIAL IV PRN (13:26)
--- NOTE | 2024-06-04 13:30 | Anesthesiology Consultation ---
Date of Service June 04, 2024 Assessment & Plan (1) Encounter for pre-operative examination: Chart Review Chart Review: Patient NOT seen in Pre Admission Testing and Acceptable Risk for Labor Epidural Consults Requested none History Height/Weight Height: 5 ft 6 in Weight: 102.058 kg Allergies Allergy/AdvReac Type Severity Reaction Status Date / Time cashew nut Allergy Intermediate MOUTH BUMPS Verified 03/18/23 02:30 morphine AdvReac Intermediate Nausea Verified 06/04/24 08:20 Medications Home Medications Medication Instructions Recorded Confirmed Last Taken albuterol sulfate 90 mcg/actuation 2 puff inhalation Q6H PRN Wheezing 04/05/20 06/04/24 1 Week Ago aerosol inhaler ~11/13/21 albuterol sulfate 2.5 mg/3 mL 2.5 mg inhalation Q6H PRN 08/27/20 06/04/24 1 Week Ago (0.083 %) solution for nebulization Shortness Of Breath Or Wheezing ~11/13/21 cyanocobalamin (vitamin B-12) 1,000 mcg PO DAILY 03/17/23 06/04/24 05/21/24 08:00 1,000 mcg tablet (Vitamin B-12) acetaminophen 500 mg tablet 1,000 mg PO Q6H PRN Pain 06/04/24 06/04/24 06/03/24 23:15 vits no.124-ferrous fum 1 tab PO DAILY 06/04/24 06/04/24 05/21/24 08:00 27 mg iron-folic acid 800 mcg tablet ( Vitamin) Active Medications Generic Name Dose Route Start Last Admin Trade Name Freq PRN Reason Stop Dose Admin Lactated Ringer's 1,000 mls @ 150 mls/hr 06/04/24 08:41 06/04/24 13:48 Lr IV 06/06/24 08:40 999 mls/hr .Q6H40M PRN Administration L&D Protocol Protocol Oxytocin 30 units in 500 mls @ 14 mls/hr 06/04/24 09:12 06/04/24 12:50 Pitocin 30 Units/Nss IV 06/06/24 09:11 0.84 units/hr .Q24H PRN 14 mls/hr Labor Induction/Augmentation Titration Protocol 0.84 UNITS/HR Past Medical History Medical History (Updated 06/04/24 @ 13:30 by Josep Cornell MD) Encounter for pre-operative examination Fibromyalgia Ectopic of right ovary right tube removed 04-01 History of mononucleosis VERBALIZED "REOCCURING MONO" Anxiety and depression Anxiety Asthma Uses Albuterol Inhaler PRN Exercise / Class Metabolic Activity II 4-5 Yardwork/Stairs/Walk up hill Past Family History Family History Other No known health problems No significant family history Past Surgical History Surgical History Family history of reaction to anesthesia MOTHER-NAUSEA History of esophagogastroduodenoscopy (EGD) [place] teeth extracted Past Anesthesia History No Hx of Anesthesia Complications and No Family Hx of Anesthesia Complications History of PONV No Hx of PONV and No Hx of Motion Sickness Social History Smoking Status: Never smoker Do You Dip or Chew Tobacco: No Hx Alcohol Use: No Hx Substance Use: No substance use type: does not use Physical Exam Vital Signs Last Vital Signs Temp 36.7 C 06/04/24 13:23 Pulse 83 06/04/24 13:59 Resp 20 06/04/24 13:23 BP 130/58 L 06/04/24 13:59 Pulse Ox 99 06/04/24 13:57 Testing Laboratory Results 06/04/24 09:29 Blood Type O Positive 06/04/24 09:29 Antibody Screen NEGATIVE 06/04/24 09:29
[2024-06-04] MEDS: LIDOCAINE 2%/EPINEPHRINE 1:200,000 20 ML PF ONE (13:45)
[2024-06-04] MEDS: BUPIVACAINE 0.25% PF 30 ML VIAL ONE (13:45)
[2024-06-04] MEDS: fentaNYL citrate PF 100 MCG/2 ML VIAL ONE (13:50)
[2024-06-04] MEDS: fentANYL 2 MCG/ML BUPIVacaine 0.125%-NSS 100ML BAG ONE (14:07)
[2024-06-04] MEDS: SODIUM CHLORIDE 0.9% PF INJ 10 ML VIAL ONE (14:19)
--- NOTE | 2024-06-04 14:45 | Obstetrical Progress Note ---
Date of Service June 04, 2024 Assessment & Plan Admission and Anticipated Discharge Date Admission Date: June 04, 2024 Subjective Patient is reevaluated. She recevied epidural for pain, comfortable now VE; 4-5 cm/ 50%/ -1, AROM'ed, minimal clear fluid FHR categ I Oxytocin is at 16 ainsley/ min Continue to monitor closely. Results & Data Vital Signs (Past 12 Hours) Vital Signs Temp Pulse Resp BP Pulse Ox 06/04/24 14:42 97 06/04/24 14:42 82 06/04/24 14:40 36.4 C L 20 06/04/24 14:37 98 06/04/24 14:37 79 06/04/24 14:32 99 06/04/24 14:32 78 06/04/24 14:29 78 06/04/24 14:29 110/54 L 06/04/24 14:27 98 06/04/24 14:27 81 06/04/24 14:22 97 06/04/24 14:22 80 06/04/24 14:17 98 06/04/24 14:17 88 06/04/24 14:12 98 06/04/24 14:12 88 06/04/24 14:12 101/55 L 06/04/24 14:10 83 06/04/24 14:10 98/57 L 06/04/24 14:08 81 06/04/24 14:08 95/55 L 06/04/24 14:07 97 06/04/24 14:07 84 06/04/24 14:07 95/51 L 06/04/24 14:05 83 06/04/24 14:05 106/51 L 06/04/24 14:03 83 06/04/24 14:03 104/51 L 06/04/24 14:02 98 06/04/24 14:02 84 06/04/24 14:01 81 06/04/24 14:01 111/52 L 06/04/24 13:59 83 06/04/24 13:59 130/58 L 06/04/24 13:57 99 06/04/24 13:57 86 06/04/24 13:56 83 06/04/24 13:56 129/63 06/04/24 13:52 98 06/04/24 13:52 81 06/04/24 13:52 81 08/26/24 13:52 127/79 06/04/24 13:47 98 06/04/24 13:47 90 06/04/24 13:42 97 06/04/24 13:42 90 06/04/24 13:37 98 06/04/24 13:37 90 06/04/24 13:37 106/63 06/04/24 13:32 99 06/04/24 13:32 83 06/04/24 13:23 36.7 C 20 06/04/24 12:56 90 06/04/24 12:56 117/71 06/04/24 11:51 85 06/04/24 11:51 112/67 06/04/24 11:46 36.6 C 20 06/04/24 10:48 98 H 06/04/24 10:48 95/68 L 06/04/24 10:39 81 06/04/24 10:39 97/63 L 06/04/24 10:24 82 06/04/24 10:24 20 111/63 06/04/24 10:08 86 06/04/24 10:08 115/59 L 06/04/24 09:53 86 06/04/24 09:53 114/62 06/04/24 09:38 96 H 06/04/24 09:38 117/67 06/04/24 08:26 36.6 C 20 06/04/24 07:47 36.6 C 96 H 20 102/63
[2024-06-04] MEDS ORDERED: ACETAMINOPHEN 325 MG TAB PO PRN (18:01)
[2024-06-04] MEDS ORDERED: DIPHTHER/TETAN/PERTUS Vaccine (Tdap, Adol/Adult) 0.5mL IM ONE (18:01)
[2024-06-04] MEDS ORDERED: BENZOCAINE 20% SPRY 85 APPLN/85 GM CAN EXT PRN (18:01)
[2024-06-04] MEDS ORDERED: bisacodyL 10 MG SUPP PR PRN (18:01)
[2024-06-04] MEDS ORDERED: oxyCODONE/ACETAMINOPHEN 5mg/325mg TAB PO PRN (18:01)
[2024-06-04] MEDS ORDERED: MEASLES, MUMPS & RUBELLA VIRUS VACCINE (MMR) 0.5ML VIAL SQ ONE (18:01)
[2024-06-04] MEDS ORDERED: HYDROCORTISONE ACETATE 25 MG SUPP PR PRN (18:01)
--- NOTE | 2024-06-04 18:01 | Anesthesia Procedure Note ---
Date of Service June 04, 2024 Anesthesia Post Epidural Note Vital Signs Vital Signs: Temp Pulse Resp BP Pulse Ox 36.4 C L 82 20 108/60 99 06/04/24 17:15 06/04/24 17:58 06/04/24 17:45 06/04/24 17:58 06/04/24 17:23 Pain Intensity Abdomen: Pain Intensity: 0 Notes Mental Status: alert / awake / arousable and participated in evaluation Patient Amnestic to Procedure: No Nausea / Vomiting: adequately controlled Pain: adequately controlled Airway Patency, RR, SpO2: stable & adequate BP & HR: stable & adequate Hydration State: stable & adequate Neuraxial Anesthesia: was administered and sensory block is resolving Anesthetic Complications: no major complications apparent and Pt Satisfied with anesthetic care Epidural: Removed without complications and With tip intact
--- NOTE | 2024-06-04 18:10 | Delivery Summary ---
Vaginal Delivery Summary Date of Service June 04, 2024 Vaginal Delivery Summary Patient was found to be fully dilated and desires to push. She pushed with one contraction only and delivered the head and then shoulders noted to be stuck, unable to deliver with minimal traction. nursing team were notified of shoulder dystocia, the bed was lowered down, mom's legs were Hyperflexed with Chana maneuver, Supra pubic pressure was applied, that I had to reach posterior/right arm shoulder and deliver manually, followed by the anterior shoulder and body quickly. The hallway was delivered within less than 1 minute. The baby was handed off to the mother. The cord was clampedx2 and cut. The vagina and perineum were checked and found to have 1st degree perineal laceration. It was repaired with 2/0 vicryl. The placenta was delivered spontaneously as intact and complete. The uterus was explored and found to be empty. QBL was 350 ml. The fundus was firm The baby was a viable male infant, Apgars 8/8, the weight is pending 3990 gr. The mother and the baby tolerated the procedure well. No complications happened other than shoulder dystocia which was relived with above maneuvers and I was present during whole procedure.
[2024-06-04] MEDS: DOCUSATE SODIUM 100 MG CAP PO SCH (20:14)
[2024-06-04] MEDS: ACETAMINOPHEN 325 MG TAB PO PRN (20:14)
[2024-06-05] MEDS: IBUPROFEN 600 MG TAB PO PRN (01:06)
[2024-06-05 04:29] VITALS: RESP 16
[2024-06-05 06:17] LABS: Hematocrit (blood only) 31.1 % (37.0-47.0); Hemoglobin 10.1 g/dl (12.0-16.0); Mean Corpuscular Hemoglobin 29.4 pg (25.0-34.0); Mean Corpuscular Hgb Conc 32.5 g/dL (32.0-36.0); Mean Corpuscular Volume 90.4 fL (80.0-100.0); Mean Platelet Volume 11.5 fL (9.4-12.4); Platelet Count 103 K/uL (130-400); RDW Coefficient of Variation 13.8 % (11.5-14.5); RDW Standard Deviation 45.1 fL (36.4-46.3); Red Blood Count 3.44 M/uL (4.20-5.40); White Blood Count 8.37 K/ul (4.8-10.8)
[2024-06-05] MEDS: PRENATAL VITAMIN 1 TAB PO SCH (08:08)
[2024-06-05] MEDS: FERROUS SULFATE 325 MG TAB PO SCH (08:09)
--- NOTE | 2024-06-05 08:28 | Obstetrical Progress Note ---
Date of Service June 05, 2024 Assessment & Plan (1) Normal course: PPD 31 pt doing well wishes to be discharged home Subjective Ambulation: ambulating normally Voiding: no voiding problems Passing Gas:: Yes Diet Tolerance:: regular diet Lochia:: Small Feeding Type:: breast feeding Review of Systems All systems reviewed & are unremarkable except as noted in HPI & below Physical Exam Constitutional WD/WN, vitals as above well developed and well nourished Eyes PERRL, conjunctivae normal, anicteric sclerae Neck trachea midline, no thyromegaly Respiratory normal respiratory effort, lungs clear to auscultation Auscultation: no crackles, no rales and no wheezes Cardiovascular RRR, no murmur, no edema Gastrointestinal (Abdomen) normal bowel sounds, soft, nontender, no hepatosplenomegaly Uterus is below umbilicus Musculoskeletal no cyanosis or clubbing, extremities motor strength 5/5 Skin no rashes, warm and dry Neurologic patellar DTR's 2+ bilat, sensation intact Psychiatric A+Ox3, euthymic affect Genitourinary normal external appearance Results & Data Vital Signs (Past 12 Hours) Vital Signs Temp Pulse Resp BP Pulse Ox O2 Del Method 06/05/24 04:00 36.8 C 72 16 102/65 97 Room Air 06/04/24 23:59 36.6 C 77 18 90/60 L 98 Room Air
[2024-06-05 12:38] VITALS: BP 96/62; PULSE 88; TEMP 98.1; O2SAT 97
[2024-06-05] MEDS ORDERED: bisacodyL 5 MG TABEC PO SCH (20:00)
== END 2024-06-05 17:38 | disposition home or self-care (01) | DRG 807 ==
LOC: 4S1 07:44 → 4S4 20:05 → 4E2 20:08